=== PATIENT | female | born 1940 | race Caucasian/White ===

== ENCOUNTER 2023-02-11 14:47 | Outpatient (OUT) | payer OTHER, SELFPAY ==
--- NOTE | 2023-02-11 14:59 | XR_ITS ---
The [address] [address] Patient Name: ZEYNEP ALVARADO MRN: [id number] date: 1940 Sex: F Assigned Patient Location: [facility] Current Patient Location: RAD Accession/Order Number: [id number] Exam Date: 02/11/2023 14:50 Report Date: 02/11/2023 17:13 At the request of: CHRISTOPHER HOUSTON Procedure: XR chest 2V EXAM: XR chest 2V HISTORY: Night sweats/hot flashes R23.2 COMPARISON: None. TECHNIQUE: PA and lateral views of the chest performed. FINDINGS: The trachea is midline. The heart size is upper limits normal. 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 The lung volumes are normal. The lung turner are otherwise clear. There is no pneumothorax. The bony structures are osteopenic. There is scoliosis along the thoracolumbar spine. XR/XR chest 2V IMPRESSION: There is no acute cardiopulmonary process. Electronically authenticated by: HEATH MORATAYA Date: 02/11/2023 17:13
== END 2023-02-11 14:48 | disposition home or self-care (01) ==
LOC: RAD 14:47
PROVIDERS: PCP Internal Medicine; Visit Provider Physician Assistant
DX: R23.2 Flushing (principal)
CPT/HCPCS: 71046

== ENCOUNTER 2023-04-28 14:05 | Outpatient (OUT) | payer OTHER, SELFPAY ==
--- NOTE | 2023-04-28 14:08 | MM_ITS ---
Patient Name: ZEYNEP ALVARADO MR#: [id number] : 1940 Exam Date: 04/28/2023 Ordering Doctor: DR PDAILLA SOL M.D. RADIOLOGY REPORT PROCEDURE: MM TOMOSYNTHESIS SCREENING BI COMPARISON: MG MAMM SCREEN 3D JEAN PIERRE CAD, 03/21/2021. MG MAMM SCREEN 3D JEAN PIERRE CAD, 04/22/2022. INDICATIONS: Screening Calculator Name NCI Breast Cancer Risk Assessment Tool 5 Year Breast Cancer Risk 3.50% Lifetime Breast Cancer Risk 5.30% Personal Breast Cancer No Personal Ovarian Cancer No Treatments Excision Family Cancers Mother with pancreas cancer at age 98; Mother with breast cancer at age ~78; Mother with colon cancer at age 96; Grandmother-maternal with colon cancer at age ~60; Aunt-maternal with bladder cancer at age ~80. LOCATION: [facility] BREAST COMPOSITION: Heterogeneously dense,which may obscure small masses. FINDINGS: DIAGNOSTIC CATEGORY 1--NEGATIVE. NO CHANGE FROM COMPARISON ASSESSMENT. Scattered benign-appearing calcifications are present. RIGHT BREAST: No significant suspicious finding. LEFT BREAST: No significant suspicious finding. RECOMMENDATIONS: ROUTINE MAMMOGRAM AND CLINICAL EVALUATION IN 12 MONTHS. PLEASE NOTE: A NORMAL MAMMOGRAM DOES NOT EXCLUDE THE POSSIBILITY OF BREAST CANCER. A CLINICALLY SUSPICIOUS PALPABLE LUMP SHOULD BE BIOPSIED. Dictated by: Fred Holt MD on 04/28/2023 at 14:51 Approved by: Fred Holt MD on 04/28/2023 at 14:53
== END 2023-04-28 14:06 | disposition home or self-care (01) ==
LOC: MAMMO 14:05
PROVIDERS: PCP Internal Medicine; Visit Provider Internal Medicine
DX: Z12.31 Encounter for screening mammogram for malignant neoplasm of breast (principal); Z80.3 Family history of malignant neoplasm of breast; Z80.52 Family history of malignant neoplasm of bladder; Z80.0 Family history of malignant neoplasm of digestive organs; Z80.8 Family history of malignant neoplasm of other organs or systems
CPT/HCPCS: 77063; 77067

== ENCOUNTER 2023-09-15 14:27 | Outpatient (OUT) | payer OTHER, SELFPAY ==
--- NOTE | 2023-09-15 14:31 | XR_ITS ---
[address] [address] Patient Name: ZEYNEP ALVARADO MRN: [id number] date: 1940 Sex: F Assigned Patient Location: [facility] Current Patient Location: [facility] Accession/Order Number: [id number] Exam Date: 09/15/2023 14:40 Report Date: 09/15/2023 15:59 At the request of: PADILLA SOL Procedure: XR DEXA axial skeleton EXAMINATION: XR DEXA axial skeleton, 09/15/2023 2:40 PM EDT HISTORY: Estrogen Deficiency E28.39 COMPARISON: 2020, , 16, 14, 12, 05. TECHNIQUE: Dual-energy X-ray absorptiometry (DEXA) bone density study performed for the axial skeleton. HISTORY: Estrogen Deficiency E28.39 FINDINGS: Bone mineral density AP spine L2-L4 measures 1.181 g/sq cm. T score -0.2. WHO classification: Normal. This is artifactually elevated secondary to dextroscoliosis and degenerative spondylosis Lowest bone mineral density is in the right femoral neck measuring 0.818 g/sq cm. T score -1.6. WHO classification: Osteopenia XR/XR DEXA axial skeleton IMPRESSION: Osteopenia. Moderate fracture risk. Physiologic reduction from the prior exam Electronically authenticated by: TIFFANY ALBRECHT Date: 09/15/2023 15:59
== END 2023-09-15 14:28 | disposition home or self-care (01) ==
LOC: RAD 14:27
PROVIDERS: PCP Internal Medicine; Visit Provider Internal Medicine
DX: E28.39 Other primary ovarian failure (principal); M85.80 Other specified disorders of bone density and structure, unspecified site
CPT/HCPCS: 77080

== ENCOUNTER 2024-05-20 14:00 | Outpatient (OUT) | payer MEDICARE, SELFPAY ==
--- NOTE | 2024-05-20 14:04 | MM_ITS ---
Patient Name: ZEYNEP ALVARADO MR#: [id number] : 1940 Exam Date: 05/20/2024 Ordering Doctor: DR PADILLA SOL M.D. RADIOLOGY REPORT PROCEDURE: MM TOMOSYNTHESIS SCREENING BI COMPARISON: MG MAMM SCREEN 3D JEAN PIERRE CAD, 04/22/2022. MM TOMOSYNTHESIS SCREENING BI, 04/28/2023. INDICATIONS: Screening Calculator Name NCI Breast Cancer Risk Assessment Tool 5 Year Breast Cancer Risk 3.40% Lifetime Breast Cancer Risk 4.90% Personal Breast Cancer No Personal Ovarian Cancer No Treatments Excision Family Cancers Mother with pancreas cancer at age 98; Mother with breast cancer at age ~78; Mother with colon cancer at age 96; Grandmother-maternal with colon cancer at age ~60; Aunt-maternal with bladder cancer at age ~80. LOCATION: [facility] [place] BREAST COMPOSITION: The breasts are heterogeneously dense,which may obscure small masses. FINDINGS: DIAGNOSTIC CATEGORY 1--NEGATIVE. NO CHANGE FROM COMPARISON ASSESSMENT. Scattered benign-appearing lymph nodes are present. RIGHT BREAST: No significant suspicious finding. LEFT BREAST: No significant suspicious finding. RECOMMENDATIONS: ROUTINE MAMMOGRAM AND CLINICAL EVALUATION IN 12 MONTHS. PLEASE NOTE: A NORMAL MAMMOGRAM DOES NOT EXCLUDE THE POSSIBILITY OF BREAST CANCER. A CLINICALLY SUSPICIOUS PALPABLE LUMP SHOULD BE BIOPSIED. Dictated by: Fred Holt MD on 05/20/2024 at 15:54 Approved by: Fred Holt MD on 05/20/2024 at 15:55
--- OUTSIDE RECORDS SUMMARY | 2024-05-20 14:04 | XMS_ITS | CCD ---
Author Organization [facility] Care Team Providers Care Lost And Found Clerk Name Role Phone Mitch Talavera Unavailable GORDY Chen Primary Care Provider DO Mitch Talavera Attending Provider [phone] DR DENNY CHEN Primary Care Unavailable ALYSON CARLSON Admitting Unavailable ALYSON CRALSON Attending Unavailable SINDHU MEDRANO Consulting Unavailable TIFFANY ADAM Consulting Unavailable EBENEZER, DR CAUSEY Admitting Unavailable EBENEZER, DR CAUSEY Attending Unavailable EBENEZER, DR CAUSEY Primary Care Unavailable EBENEZER, DR CAUSEY Consulting Unavailable EAST DENNIS, DR TIFFANY Corrales Consulting Unavailable Denny Chen MD Primary Care Provider Denny Chen MD Unavailable Denny Chen MD Unavailable [phone] GORDY Chen Primary Care Provider [phone] NATTY Hernandez Attending Provider DO Etienne Moses Attending Provider Etienne Moses Admitting Unavailable Denny Chen Primary Care Unavailable Etienne Moses Attending Unavailable Denny Chen Primary Care Unavailable Etienne Moses Attending Unavailable Etienne Moses Admitting Unavailable Denny Chen Primary Care Unavailable Kennedi Hernandez Attending Unavailable Kennedi Hernandez Admitting Unavailable Denny Chen MD Unavailable EARNEST SALINAS Attending Unavailable CHRISTOPHER HOUSTON Attending Unavailable DENNY CHEN Attending Unavailable EARNEST SALINAS Attending Unavailable EARNEST SALINAS Attending Unavailable DENNY CHEN Attending Unavailable EARNEST SALINAS Attending Unavailable RUT NGUYEN Attending Unavailable RUT NGUYEN Attending Unavailable RUT NGUYEN Attending Unavailable RUT NGUYEN Attending Unavailable Allergies Allergy Classification Reported Allergen(s) Allergy Type Date of Onset Reaction(s) Facility (20 sources) erythromycin base; Translations: [erythromycin base] Allergy to substance 2 Redness of Skin [facility] (20 sources) cefdinir Drug Allergy 3 Diarrhea [facility] (20 sources) Erythromycin Drug Allergy 3 Rash [facility] (20 sources) Amoxicillin-Pot Clavulanate Drug Allergy 3 Diarrhea [facility] Medications Current Medications Medication Drug Class(es) Dates Sig (Normalized) Sig (Original) Arexvy 120 MCG/0.5ML reconstituted suspension (10 sources) Start: 09-21-2023 Arexvy 120 MCG/0.5ML reconstituted suspension 09/21/2023 Active ascorbic acid 500 mg oral tablet (20 sources) Vitamin C Start: 12-18-2021 take 1 tablet by mouth once daily Ascorbic Acid (Vitamin C) (Vitamin C) 500 mg Tablet Active 500 MG PO Daily December 18, 2021 12:00am Ascorbic Acid (V itamin C) 500 MG capsule Take by mouth Active Vitamin C Active calcium carbonate 1500 mg oral tablet (7 sources) Start: 12-18-2021 take 1 tablet by mouth twice daily Calcium Carbonate (Calcium 600) 600 mg calcium (1,500 mg) Tablet Active 600 MG PO Twice daily December 18, 2021 12:00am Calcium Carbonate-Vit D-Min (Calcium 600+D Plus Minerals) 600-400 MG-UNIT chewable tablet (20 sources) Calcium Carbonat e-Vit D-Min (Calcium 600+D Plus Minerals) 600-400 MG-UNIT chewable tablet 1 (one) time each day at the same time. Active Calcium Carbonat e-Vit D-Min (Calcium 600+D Plus Minerals) 600-400 MG-UNIT chewable tablet 1 (one) time each day at the same time. 0 Active Calcium Citrate (7 sources) Calcium Citrate + D3 Active celecoxib 100 mg oral capsule (14 sources) Nonsteroidal Anti-inflammatory Drug Start: 4 End: 5 take 1 capsule by mouth in the morning celecoxib (CeleBREX) 100 MG capsule Indications: Primary osteoarthritis of both knees Take 1 capsule (100 mg) by mouth in the morning and 1 capsule (100 mg) before bedtime. 60 capsule 11 04/06/2024 04/06/2025 Active Start: 07-21-2022 take 1 capsule by mi ut in the morning celecoxib (CeleBREX) 100 MG capsule Take 100 mg by mouth in the morning. 0 07/21/2022 Active cholecalciferol 0.05 mg oral capsule (12 sources) Vitamin D Start: 12-18-2021 take 1 capsule by mouth once daily Cholecalciferol (Vitamin D3) (Vitamin D3) 50 mcg (2,000 unit) Capsule Active 50 MCG PO Daily December 18, 2021 12:00am End: 01-20-2024 cholecalciferol (Vitamin D-3 ) 50 MCG (2000 UT) tablet Take 50 tablets by mouth 1 (one) time each day at the same time. 01/20/2024 Discontinued doxycycline hyclate 100 mg oral tablet (5 sources) Tetracycline-class Drug Start: 04-29-2024 End: 05-06-2024 take 1 tablet by mouth in the morning doxycycline (Vibra-Tabs) 100 MG tablet Indications: Infection of superficial incisional surgical site after procedure, initial encounter Take 1 tablet (100 mg) by mouth in the morning and 1 tablet (100 mg) before bedtime. Do all this for 7 days. 14 tablet 04/29/2024 05/06/2024 Active hydrocortisone 25 mg/ml rectal cream (20 sources) Corticosteroid Start: 02-10-2023 hydrocortisone (Anusol-HC) 2.5 % rectal cream Indications: External hemorrhoids Insert into the rectum 2 (two) times a day. 28 g 2 02/10/2023 Active levothyroxine sodium 0.1 mg oral tablet (20 sources) l-Thyroxine Start: 12-18-2021 End: 01-20-2024 take 1 tablet by mouth in the morning levothyroxine (Synthroid, Levoxyl) 100 MCG tablet Indications: Acquired hypothyroidism (CMS/HCC) Take 1 tablet (100 mcg) by mouth in the morning. Take on an empty stomach.. 100 tablet 3 01/20/2024 Active Multiple Vitamin (MULTIVITAMINS PO) (20 sources) take 1 tablet by mouth once daily Multiple Vitamin (MULTIVITAMINS PO) Take 1 tablet by mouth 1 (one) time each day. Active take 1 tablet by mouth once agustín y Multiple Vitamin (MULTIVITAMINS PO) Take 1 tablet by mouth 1 (one) time each day. 0 Active Multivitamin preparation (7 sources) Multi Vitamin Ac tive Ivykxfqhuoof-Fye-Jcpt-Fa-V it K (Multi For Her) 18 mg iron-600 mcg-40 mcg Capsule (7 sources) Start: 10-21-2017 take 1 tablet by mouth once daily Swolcuxjnemo-Rau-Qgin- Fa-Vit K (Multi For Her) 18 mg iron-600 mcg-40 mcg Capsule Active 1 TAB PO Daily October 21, 2017 12:00am potassium 99 mg extended release oral tablet (7 sources) Start: 12-18-2021 take 99 mg by mouth once daily Potassium Active 99 MG PO Daily December 18, 2021 12:00am Psyllium (7 sources) take 3 capsules by mouth once daily in the morning Metamucil 0.52 GM 3 CAPSULES Orally EVERY MORNING Active take 3 capsules by m outh once daily in the morning Metamucil 0.52 GM 3 CAPSULES Orally EVER Y MORNING Active traMADol hydrochloride 50 mg oral tablet (20 sources) Opioid Agonist Start: 08-13-2023 take 1 tablet by mouth every eight hours as needed for pain traMADol (Ultram) 50 MG tablet Take 50 mg by mouth every 8 (eight) hours if needed for moderate pain 08/13/2023 Active Start: 08-13-2023 take 50 mg by mouth twice agustín y Tramadol Active 50 MG PO Twice daily 04 23August 13, 2023 12:00am triamcinolone acetonide 1 mg/ml topical cream (2 sources) Corticosteroid triamcinolone (Kenalog) 0.1 % cream Apply 1 application topically every 12 (twelve) hours. 0 Active Vision Formula 2 (7 sources) Vision Formula 2 Active Vit A,C And F-Hbydfy-Boqcxvou (Vision Formula (With Lutein)) 300 mcg-200 mg-27 mg-2 mg Tablet (7 sources) Start: 2 take 1 tablet by mouth once daily after mealtime Vit A,C And K-Omzbsv-Nwrjybrg (Vision Formula (With Lutein)) 300 mcg-200 mg-27 mg-2 mg Tablet Active 1 TAB PO Daily December 18, 2021 12:00am administer after a meal Completed/Discontinued Medications Medication Drug Class(es) Dates Sig (Normalized) Sig (Original) acetaminophen 500 mg oral capsule (7 sources) take 1 capsule by mouth every six hours Acetaminophen 500 MG 1 capsule as needed Orally every 6 hrs Not-Taking loperamide hydrochloride 2 mg oral capsule (14 sources) Opioid Agonist Start: 10-21-2017 End: 12-18-2021 Loperamide Discontinued 2 MG PO As Directed October 21, 2017 12:00am December 18, 2021 3:01pm Start: 10-21-2017 End: 10-21-2017 Loperamide Discontinued October 21, 2017 12:00am October 21, 2017 6:24am meloxicam 15 mg oral tablet (7 sources) Nonsteroidal Anti-inflammatory Drug Start: 07-25-2021 take 1 tablet by mouth every twenty-four hours Meloxicam 15 MG 1 tablet Orally Once a day for 30 day(s) Jul, Not-Taking Multiple Vitamins-Minera ls (Vision Vitamins) tablet (3 sources) End: 01-20-2024 Multiple Vitamins-Minerals (Vision Vitamins) tablet Take by mouth 01/20/2024 Discontinued Multiple Vitamin s-Minerals (Vision Vitamins) tablet Take by mouth Active Problems Active Problems Problem Classification Problem Date Documented Date Episodic/Chronic Acquired foot deformities (20 sources) Acquired right hallux valgus; Translations: [Hallux valgus (acquired), right foot] Onset: 12-24-2022 12-24-2022 Chronic Acquired foot deformities (2 sources) Acquired deformity of toe of right foot; Translations: [Acquired deformities of toe(s), unspecified, right foot] 02-29-2024 Episodic Complications of surgical procedures or medical care (2 sources) Postoperative wound infection-superficial ; Translations: [Infection following a procedure, superficial incisional surgical site, initial encounter] 04-29-2024 Episodic Menopausal disorders (20 sources) Disorder associated with menstruation AND/OR menopause; Translations: [Unspecified menopausal and perimenopausal disorder] Onset: 12-24-2022 12-24-2022 Chronic Mood disorders (20 sources) Mild major depression, single episode; Translations: [Major depressive disorder, single episode, mild] Onset: 12-24-2022 12-24-2022 Chronic Mycoses (3 sources) Onychomycosis; Translations: [Tinea unguium] 07-02-2023 Episodic Neoplasms of unspecified nature or uncertain behavior (2 sources) Neoplastic disease; Translations: [Neoplasm of unspecified behavior of bone, soft tissue, and skin] 04-05-2024 Episodic Nonmalignant breast conditions (19 sources) Fibrocystic disease of breast; Translations: [Diffuse cystic mastopathy of unspecified breast] Onset: 09-08-2003 07-29-2023 Chronic Osteoarthritis (20 sources) Osteoarthritis of joint of left wrist; Translations: [Primary osteoarthritis, left wrist] Onset: 07-25-2021 Resolved: 01-10-2022 Chronic Other aftercare (2 sources) Removal of sutures done; Translations: [Encounter for removal of sutures] 05-05-2024 Episodic Other circulatory disease (2 sources) Spider nevus; Translations: [Nevus, non-neoplastic] 04-05-2024 Episodic Other connective tissue disease (1 source) Pain of toes of bilateral feet; Translations: [Pain in right toe(s)] 07-02-2023 Episodic Other injuries and conditions due to external causes (4 sources) Other injury of unspecified body region, initial encounter; Translations: [Fracture of unspecified bone, closed] 08-10-2023 Episodic Other injuries and conditions due to external causes (1 source) Unspecified injury of right shoulder and upper arm, initial encounter; Translations: [Unspecified injury of right shoulder and upper arm, initial encounter] Onset: 08-10-2023 Episodic Other nervous system disorders (3 sources) Carpal tunnel syndrome of left wrist; Translations: [Carpal tunnel syndrome, left upper limb] Chronic Other nervous system disorders (2 sources) Carpal tunnel syndrome, left upper limb Onset: 12-13-2021 Resolved: 01-10-2022 Chronic Other screening for suspected conditions (not mental disorders or infectious disease) (4 sources) Encounter for screening mammogram for malignant neoplasm of breast; Translations: [ENC SCR MAMMO MALIG NEOPLASM BREAST] Onset: 04-22-2022 Episodic Other skin disorders (2 sources) Lentiginosis; Translations: [Other melanin hyperpigmentation] 04-05-2024 Episodic Other skin disorders (2 sources) Actinic keratosis; Translations: [Actinic keratosis] 04-05-2024 Episodic Other skin disorders (2 sources) Seborrheic keratosis; Translations: [Other seborrheic keratosis] 04-05-2024 Episodic Residual codes; unclassified (1 source) Family history of malignant neoplasm of digestive organs; Translations: [FAM HX MALIG NEOPLASM DIGESTIV ORGN] Onset: 04-26-2022 Episodic Residual codes; unclassified (1 source) Family history of malignant neoplasm of breast; Translations: [FAMILY HX MALIG NEOPLASM OF BREAST] Onset: 04-26-2022 Episodic Residual codes; unclassified (1 source) Family history of malignant neoplasm of bladder; Translations: [FAM HX MALIGNANT NEOPLASM BLADDER] Onset: 04-26-2022 Episodic Thyroid disorders (20 sources) Goiter; Translations: [Nontoxic goiter, unspecified] Onset: 12-24-2022 12-24-2022 Chronic Past or Other Problems Problem Classification Problem Date Documented Da te Episodic/Chronic E Codes: Fall (1 source) Unspecified fall, initial encounter; Translations: [UNSPECIFIED FALL INITIAL ENCOUNTER] Onset: 07-25-2021 Episodic Fracture of upper limb (20 sources) Other fractures of lower end of left radius, initial encounter for closed fracture; Translations: [Unspecified fracture of the lower end of left radius, initial encounter for closed fracture] Onset: 07-25-2021 Resolved: 12-13-2021 Episodic Hemorrhoids (20 sources) Thrombosed external hemorrhoids; Translations: [Perianal venous thrombosis] Onset: 12-24-2022 12-24-2022 Episodic Mood disorders (19 sources) Mood disorders Onset: 09-09-2023 09-09-2023 Other bone disease and musculoskeletal deformities (20 sources) Osteopenia; Translations: [Other specified disorders of bone density and structure, unspecified site] Onset: 12-24-2022 12-24-2022 Episodic Other gastrointestinal disorders (20 sources) Diarrhea; Translations: [Diarrhea, unspecified] Onset: 07-29-2023 10-21-2017 Episodic Other inflammatory condition of skin (20 sources) Seborrheic dermatitis; Translations: [Seborrheic dermatitis, unspecified] Onset: 12-24-2022 12-24-2022 Episodic Other injuries and conditions due to external causes (20 sources) Injury of upper extremity; Translations: [Unspecified injury of right shoulder and upper arm, initial encounter] Onset: 09-09-2023 08-10-2023 Episodic Other injuries and conditions due to external causes (20 sources) Fracture of bone; Translations: [Other injury of unspecified body region, initial encounter] Onset: 09-09-2023 08-10-2023 Episodic Other non-epithelial cancer of skin (20 sources) Basal cell carcinoma of lower extremity; Translations: [Basal cell carcinoma of skin of right lower limb, including hip] Onset: 12-24-2022 12-24-2022 Episodic Other non-traumatic joint disorders (8 sources) Pain in left wrist; Translations: [PAIN IN LEFT WRIST] Onset: 07-23-2021 Resolved: 12-13-2021 Episodic Residual codes; unclassified (1 source) Other specified postprocedural states Onset: 01-10-2022 Resolved: 01-10-2022 Episodic Residual codes; unclassified (20 sources) Flushing; Translations: [Flushing] Onset: 02-10-2023 02-10-2023 Episodic Sprains and strains (1 source) Unspecified sprain of left ring finger, initial encounter; Translations: [UNS SPRAIN LT RING FINGER INITIAL] Onset: 07-25-2021 Episodic Results Test Name Value Interpretation Reference Range Facility CULTURE, AEROBIC BACTERIAon 05-02-2024 CULTURE, AEROBIC BACTERIA SEE NOTE Abnormal [facility] Comment on above: Order Comment: FASTI NG: UNKNOWN Result Comment: CULTURE, AEROBIC BACTERIA Micro Number: [id number] Test Status: Final Specimen Source: Left abdomen Specimen Quality: Adequate Result: Heavy growth of Staphylococcus aureus S.aureus INT ESTER CIPROFLOXACIN S <=0.5 CLINDAMYCIN S <=0.25 ERYTHROMYCIN S <=0.25 GENTAMICIN S <=0.5 LEVOFLOXACIN S <=0.12 OXACILLIN S <=0.25 1 TETRACYCLINE S <=1 TRIMETHOPRIM/SULFA S <=10 VANCOMYCIN S <=0.5 S = Susceptible I = Intermediate R = Resistant NS = Not susceptible SDD = Susceptible Dose Dependent * = Not Tested NR = Not Reported NN = See Therapy Comments THERAPY COMMENTS Note 1: Oxacillin susceptible staphylococci are susceptible to other penicillinase-stable penicillins (e.g., methicillin, nafcillin), beta- lactam/beta-lactamase inhibitor combinations, and cephems with staphylococcal indications, including cefazolin. Performed By: #### [phone] #### [facility] [address], [address] [place] [address] Clinical Account Manager: Cheko Tony MD No Panel Informationon 04-21 Complexity: Intermediate Final length (cm): 3 Reason for type of repair: allow closure of the large defect Undermining: edges undermined Undermining comment: The surrounding tissue was undermined until the skin edges could be approximated without undue tension. Any tissue redundancies were removed. Subcutaneous layers (deep stitches): Suture size: 3-0 Suture type comment: Biosyn Stitches: Buried horizontal mattress (Closure was performed in a layered fashion with subcutaneous tissue closed first using tension-bearing absorbable sutures to the level of the superficial fascia.) Fine/surface layer approximation (top stitches): Suture size: 4-0 Suture type: Prolene (polypropylene) Stitches: simple running Stitches comment: Epicuticular skin sutures were then placed with minimal tension. Suture removal (days): 14 Outcome: patient tolerated procedure well with no complications Post-procedure details: sterile dressing applied and wound care instructions given Post-procedure details comment: It was emphasized to the patient to contact the office for any signs of infection, uncontrollable bleeding, or complications. Dressing type: bandage [facility] Lesion length (cm): 0.7 Lesion width (cm): 0.7 Margin per side (cm): 0.4 Total excision diameter (cm): 1.5 Informed consent: discussed and consent obtained Informed consent comment: Risks and possible complications were discussed as noted on the consent form. The consent form was signed prior to the procedure. Timeout: patient name, date of , surgical site, and procedure verified Timeout comment: Patient and provider identified site. Site was marked and excision was drawn out. Photo was taken and shown to patient, patient verified this is the correct site. Procedure prep: Patient was prepped and draped in usual sterile fashion (The planned incision lines were drawn along relaxed skin tension lines, if possible, to minimize scarring and deformity of surrounding structures.) Prep type: Chlorhexidine Anesthesia: the lesion was anesthetized in a standard fashion Anesthesia comment: The local anesthetic was injected to create a field block at the site of the procedure. Anesthetic: 1% lidocaine w/ epinephrine 1-100,000 buffered w/ 8.4% NaHCO3 Instrument used: #15 blade Instrument used comment: Incisions were made as drawn, and the surrounding tissue was undermined until the skin edges could be approximated without undue tension. Any tissue redundancies were removed. Hemostasis achieved with: electrodesiccation Additional details: Amount of lidocaine used: 6.0 ml Estimated blood loss: <1.0 ml [employer]Jam No Panel InformationOrdered By: Ruchi Vasquez on 04-21-2024 Sanera No Panel Informationon 04-05 Type of biopsy: tangential Informed consent: discussed and consent obtained Informed consent comment: The risks and benefits of the biopsy were discussed. Risks include but are not limited to bleeding, infection, scarring, pain, and nerve damage. An opportunity to ask questions prior to the procedure was permitted and all questions were answered. Patient was prepped and draped in usual sterile fashion: area cleansed with alcohol. Anesthesia: the lesion was anesthetized in a standard fashion Anesthetic: 1% lidocaine w/ epinephrine 1-100,000 buffered w/ 8.4% NaHCO3 Instrument used: DermaBlade Hemostasis achieved with: electrodesiccation Outcome: patient tolerated procedure well Outcome comment: The specimen was placed in a prelabeled formalin container to be sent for pathology Post-procedure details: sterile dressing applied and wound care instructions given Post-procedure details comment: Emphasized need to contact clinic for any signs of infection, uncontrollable bleeding, or complications. Dressing type: bandage Additional details: Photo taken yes Amount of lidocaine used: 0.5 cc Tysdo e Sanera Type of biopsy: tangential Informed consent: discussed and consent obtained Informed consent comment: The risks and benefits of the biopsy were discussed. Risks include but are not limited to bleeding, infection, scarring, pain, and nerve damage. An opportunity to ask questions prior to the procedure was permitted and all questions were answered. Patient was prepped and draped in usual sterile fashion: area cleansed with alcohol. Anesthesia: the lesion was anesthetized in a standard fashion Anesthetic: 1% lidocaine w/ epinephrine 1-100,000 buffered w/ 8.4% NaHCO3 Instrument used: DermaBlade Hemostasis achieved with: electrodesiccation Outcome: patient tolerated procedure well Outcome comment: The specimen was placed in a prelabeled formalin container to be sent for pathology Post-procedure details: sterile dressing applied and wound care instructions given Post-procedure details comment: Emphasized need to contact clinic for any signs of infection, uncontrollable bleeding, or complications. Dressing type: bandage Additional details: Photo taken yes Amount of lidocaine used: 0.5 cc [facility] XR forearm RT 2V*on 09-17-19 XR forearm RT 2V* [facility] [place] [address] XRay Report Signed Patient: Irene Alvarado MR#: [id number] 4 : 1940 Acct:[id number] Age/Sex: 82 / F ADM Date: 09/17/23 Loc: [facility] Room: Type: REG CLI Attending Dr: Etienne Moses DO Copies to: Etienne Moses DO Ordering Provider: Etienne Moses DO Date of Service: 09/17/23 XR/XR forearm RT 2V*: S52.509A - Unspecified fracture of the lower end of unspe... 2 views right forearm plain film COMPARISON: 08/10/2023 HISTORY: Status post right distal radius fracture ACUTE FINDINGS: Continued healing. Stable alignment DEGENERATIVE CHANGE: Similar SOFT TISSUE FINDINGS: Unremarkable JOINT EFFUSION: None POSTOP CHANGES: None BONY MINERALIZATION: Adequate XR/XR forearm RT 2V* IMPRESSION: Healing fracture Impression dictated by: Gary Byrd M.D.09/17/2023 4:17 PM Dictation Location: [place] [address] Transcribed By: [facility] 09/17/231616 Dictated By: Gary Byrd DO 09/17/231616 Signed By: 09/17/23 1617 Normal [facility] XR wrist RT min 3V*on 2023 XR wrist RT min 3V* [facility] [place] [address] XRay Report Signed Patient: Irene Alvarado MR#: [id number] 4 : 1940 Acct:[id number] Age/Sex: 82 / F ADM Date: 08/13/23 Loc: [facility] [place] Room: Type: REG CLI Attending Dr: Etienne Moses DO Copies to: Etienne Moses DO Ordering Provider: Eitenne Moses DO Date of Service: 08/13/23 XR/XR wrist RT min 3V*: S52.509A - Unspecified fracture of the lower end of unspe... 4 views right wrist plain film COMPARISON: 08/10/2023 HISTORY: Right distal radius fracture ACUTE FINDINGS: Stable alignment of distal radius fracture fragments. DEGENERATIVE CHANGE: Similar extensive degeneration. Chondrocalcinosis. SOFT TISSUE FINDINGS: Unremarkable JOINT EFFUSION: None POSTOP CHANGES: None BONE MINERALIZATION: Adequate XR/XR wrist RT min 3V* IMPRESSION: Stable findings Impression dictated by: Gary Byrd M.D.08/13/2023 3:41 PM Dictation Location: [facility] Transcribed By: [facility] 08/13/23 1541 Dictated By: Gary Byrd DO 08/13/23 1540 Signed By: 08/13/23 1541 Normal [facility] XR forearm RT 2V*on 08-10-19 XR forearm RT 2V* [facility] [place] [address] [place] [address] XRay Report Signed Patient: Irene Alvarado MR#: [id number] 4 : 1940 Acct:[id number] Age/Sex: 82 / F ADM Date: 08/10/23 [facility] Type[facility] Attending Dr: Kennedi Hernandez APRN Copies to: Kennedi Hernandez APRN Ordering Provider: Kennedi Hernandez APRN Date of Service: 08/10/23 XR/XR forearm RT 2V*: RIGHT ARM INJURY ([id number]) XR/XR shoulder RT min 2V*: RIGHT ARM INJURY RIGHT SHOULDER - - 3 views, right forearm 2 views CLINICAL HISTORY: Fell this afternoon now with pain posterior aspect of right shoulder radiating to elbow. Distal forearm pain. COMPARISON: None FINDINGS: Right shoulder: Mild degenerative changes of the AC and glenohumeral joints without acute bony process. Right forearm: Impacted distal radius fracture. Chondrocalcinosis involving the TFCC. Carpus demonstrate degenerative change. Elbow joint appears intact. XR/XR shoulder RT min 2V* IMPRESSION: DEGENERATIVE CHANGES OF THE RIGHT SHOULDER WITHOUT ACUTE BONY PROCESS. IMPACTED DISTAL RADIUS FRACTURE. Impression dictated by: Rajesh Lynch Jr., DClaraOClara08/10/2023 5:36 PM Dictation Location: [place] [address] Transcribed By: BOY 08/10/231735 Dictated By: Rajesh Lynch Jr, DO 08/10/231733 Signed By: 08/10/231735 Normal [facility] MG MAMM SCREEN 3D JEAN PIERRE CADon 04-22-2022 MG MAMM SCREEN 3D JEAN PIERRE CAD Patient: IRENE ALVARADO Exam Date: 04/22/2022 : 1940 Gender:F Ordering : DR DENNY CHEN M.D. Admission #: [id number] Family : Order #: [id number] CLICK HERE TO VIEW EXAM RADIOLOGY REPORT PROCEDURE: MAMMOGRAM SCREENING 3D BILATERAL CAD COMPARISON: MG MAMM SCREEN 3D JEAN PIERRE CAD, 03/21/2021. MG MAMM SCREEN JEAN PIERRE W CAD, 02/20/2020. INDICATIONS: Screening mammography Calculator Name NCI Breast Cancer Risk Assessment Tool 5 Year Breast Cancer Risk 3.50% Lifetime Breast Cancer Risk 5.90% Personal Breast Cancer No Personal Ovarian Cancer No Treatments Excision Family Cancers Mother with pancreas cancer at age 98; Mother with breast cancer at age 78; Mother with colon cancer at age 96; Grandmother-maternal with colon cancer at age 60; Aunt-maternal with bladder cancer at age 80. LOCATION: [facility] BREAST COMPOSITION: Heterogeneously dense,which may obscure small masses. FINDINGS: DIAGNOSTIC CATEGORY 1--NEGATIVE. NO CHANGE FROM COMPARISON ASSESSMENT. Scattered benign-appearing calcifications are present. RIGHT BREAST: No significant suspicious finding. LEFT BREAST: No significant suspicious finding. RECOMMENDATIONS: ROUTINE MAMMOGRAM AND CLINICAL EVALUATION IN 12 MONTHS. PLEASE NOTE: A NORMAL MAMMOGRAM DOES NOT EXCLUDE THE POSSIBILITY OF BREAST CANCER. A CLINICALLY SUSPICIOUS PALPABLE LUMP SHOULD BE BIOPSIED. Dictated by: Tiffany Holt MD on 04/22/2022 at 15:52 Approved by: Tiffany Holt MD on 04/22/2022 at 15:54 Normal [facility] Basophils Auto (Bld) [#/Vol] Ordered By: Mitch Talavera on 12-18-2021 Basophils (Bld) [#/Vol] 0.0 10*3/uL 0.0-0.2 [facility] Basophils/100 WBC Auto (Bld) Ordered By: Mitch Talavera on 12-18-2021 Basophils/100 WBC (Bld) 0.8 % . [facility] Blood hemoglobin measurement (mass/volume)Ordered By: Mitch Talavera on 12-18-2021 Hemoglobin (Bld) [Mass/Vol] 12.8 g/dL 11.8-15.4 [facility] Blood leukocytes automated c ount (number/volume)Ordered By: Mitch Talavera on 12-18-2021 WBC (Bld) [#/Vol] 5.7 10*3/uL 4.5-11.0 [facility] Body fluid albumin measureme nt (mass/volume)Ordered By: Mitch Talavera on 12-18-2021 Albumin (Body fld) [Mass/Vol] 3.7 g/dL 3.2-5.5 [facility] Creatinine and Glomerular fi ltration rate.predicted panel (S/P/Bld)Ordered By: Mitch Talavera on 12-18-2021 Creatinine [Mass/Vol] 0.84 mg/dL 0.44-1.03 [facility] Eosinophils Auto (Bld) [#/Vo l]Ordered By: Mitch Talavera on 12-18-2021 Eosinophils (Bld) [#/Vol] 0.2 10*3/uL 0.0-0.45 [facility] Eosinophils/100 WBC Auto (Bl d)Ordered By: Mitch Talavera on 12-18-2021 Eosinophils/100 WBC (Bld) 3.5 % . [facility] Erythrocyte distribution wid th Auto (RBC) [Ratio]Ordered By: Mitch Talavera on 12-18-2021 Erythrocyte distribution width (RBC) [Ratio] 14.2 % 11.9-15.3 [facility] Estimated glomerular filtrat ion rate (GFR) non- AmericanOrdered By: Mitch Talavera on 12-18-2021 GFR/1.73 sq M.predicted among non-blacks MDRD (S/P/Bld) [Vol rate/Area] > 60 mL/Min [facility] Globulin Calc (S) [Mass/Vol] Ordered By: Mitch Talavera on 12-18-2021 Globulin (S) [Mass/Vol] 2.3 g/dL [facility] Hematocrit Auto (Bld) [Volum e fraction]Ordered By: Mitch Talavera on 12-18-2021 Hematocrit (Bld) [Volume fraction] 38.4 % 34.0-46.4 [facility] Laboratory - Hematology and Cell countsOrdered By: Mitch Talavera on 12-18-2021 Nucleated RBC/100 WBC (Bld) [Ratio] 0.1 % 0-0.5 [facility] Lymphocytes Auto (Bld) [#/Vo l]Ordered By: Mitch Talavera on 12-18-2021 Lymphocytes (Bld) [#/Vol] 2.2 10*3/uL 1.00-4.8 [facility] Lymphocytes/100 WBC Auto (Bl d)Ordered By: Mitch Talavera on 12-18-2021 Lymphocytes/100 WBC (Bld) 37.9 % . [facility] MCH Auto (RBC) [Entitic mass ]Ordered By: Mitch Talavera on 12-18-2021 MCH (RBC) [Entitic mass] 30.4 pg 24.7-34.3 [facility] MCHC Auto (RBC) [Mass/Vol]Or dered By: Mitch Talavera on 12-18-2021 MCHC (RBC) [Mass/Vol] 33.3 g/dL 32.0-35.0 [facility] MCV Auto (RBC) [Entitic vol] Ordered By: Mitch Talavera on 12-18-2021 MCV (RBC) [Entitic vol] 91.4 fL 80-100 [facility] Monocytes Auto (Bld) [#/Vol] Ordered By: Mitch Talavera on 12-18-2021 Monocytes (Bld) [#/Vol] 0.5 10*3/uL 0.0-0.8 [facility] Monocytes/100 WBC Auto (Bld) Ordered By: Mitch Talavera on 12-18-2021 Monocytes/100 WBC (Bld) 9.5 % . [facility] Neutrophils Auto (Bld) [#/Vo l]Ordered By: Mitch Talavera on 12-18-2021 Neutrophils (Bld) [#/Vol] 2.8 10*3/uL 1.8-7.7 [facility] Neutrophils/100 WBC Auto (Bl d)Ordered By: Mitch Talavera on 12-18-2021 Neutrophils/100 WBC (Bld) 48.3 % . [facility] No Panel InformationOrdered By: Mitch Talavera on 12-18-2021 Estimated GFR () > 60 mL/Min [facility] Comment on above: GFR estimated refere nce range: According to KDOQI guidelines, <60 ml/min/1.73m2 is sufficient to diagnose a patient with chronic kidney disease. Pharmacy Creatinine Clearance (Chem N/A [facility] Platelet mean volume Auto (B ld) [Entitic vol]Ordered By: Mitch Talavera on 12-18-2021 Platelet mean volume (Bld) [Entitic vol] 9.0 fL 6.3-10.7 [facility] Platelets Auto (Bld) [#/Vol] Ordered By: Mitch Talavera on 12-18-2021 Platelets (Bld) [#/Vol] 218 10*3/uL 150-450 [facility] Protein [Mass/volume] in Ser um or PlasmaOrdered By: Mitch Talavera on 12-18-2021 Protein [Mass/Vol] 6.0 g/dL 6.1-7.9 [facility] RBC Auto (Bld) [#/Vol]Ordere d By: Mitch Talavera on 12-18-2021 RBC (Bld) [#/Vol] 4.20 10*6/uL 3.60-5.00 [facility] Serum or plasma alanine crockett otransferase measurement without P-5'-P (enzymatic activiOrdered By: Mitch Talavera on 12-18-2021 ALT No additional P-5'-P [Catalytic activity/Vol] 16 U/L 10-60 [facility] Serum or plasma albumin/glob ulin mass ratioOrdered By: Mitch Talavera on 12-18-2021 Albumin/Globulin [Mass ratio] 1.6 {ratio} [facility] Serum or plasma alkaline skyla sphatase measurement (enzymatic activity/volume)Ordered By: Mitch Talavera on 12-18-2021 ALP [Catalytic activity/Vol] 63 U/L 32-92 [facility] Serum or plasma aspartate am inotransferase measurement (enzymatic activity/volume)Ordered By: Mitch Talavera on 12-18-2021 AST [Catalytic activity/Vol] 25 U/L 10-42 [facility] Serum or plasma calcium wilfredo urement (mass/volume)Ordered By: Mitch Talavera on 12-18-2021 Calcium [Mass/Vol] 9.3 mg/dL 8.2-10.2 [facility] Serum or plasma chloride oj surement (moles/volume)Ordered By: Mitch Talavera on 12-18-2021 Chloride [Moles/Vol] 99 mmol/L 95-114 [facility] Serum or plasma glucose wilfredo urement (mass/volume)Ordered By: Mitch Talavera on 12-18-2021 Glucose [Mass/Vol] 147 mg/dL 70-100 [facility] Comment on above: ADA recommended refe rence range Random Glucose Reference Range is dependent on time and content of last meal. Glucose of more than 200 mg/dL in a nonstressed, ambulatory subject supports the diagnosis of Diabetes Mellitus. ADA recommended refe rence rangeRandom Glucose Reference Range is dependent on time and content of last meal. Glucose of more than 200 mg/dL in a nonstressed, ambulatory subject supports the diagnosis of Diabetes Mellitus. Serum or plasma potassium me asurement (moles/volume)Ordered By: Mitch Talavera on 12-18-2021 Potassium [Moles/Vol] 3.5 mmol/L 3.5-5.1 [facility] Serum or plasma sodium measu rement (moles/volume)Ordered By: Mitch Talavera on 12-18-2021 Sodium [Moles/Vol] 136 mmol/L 136-146 [facility] Serum or plasma total biliru bin measurement (mass/volume)Ordered By: Mitch Talavera on 12-18-2021 Bilirubin [Mass/Vol] 0.5 mg/dL 0.3-1.2 [facility] Serum or plasma total carbon dioxide measurement (moles/volume)Ordered By: Mitch Talvaera on 12-18-2021 CO2 [Moles/Vol] 26.2 mmol/L 22.0-30.0 [facility] Serum or plasma urea nitroge n measurement (mass/volume)Ordered By: Mitch Talavera on 12-18-2021 Urea nitrogen [Mass/Vol] 11 mg/dL 02-07 [facility] XR wrist LT 2Von 09-04-2021 XR wrist LT 2V [facility] [employer] Other XR wrist LT 2V [facility] [employer] Other XR wrist LT 2V [address] [place] [address] [employer] Other XR wrist LT 2V [place] [id number] [facility] [employer] Other XR wrist LT 2V XRay Report [employer] Other XR wrist LT 2V Signed [employer] Other XR wrist LT 2V Patient: Irene Alvarado MR#: [id number] [place] [employer] Other XR wrist LT 2V 4 [employer] Other XR wrist LT 2V : 1940 Acct:[id number] [employer] Other XR wrist LT 2V Age/Sex: 80 / F ADM Date: 09/04/21 [employer] Other XR wrist LT 2V Loc: [facility]: [facility] [employer] Other XR wrist LT 2V Attending Dr: Mitch Talavera DO [employer] Other XR wrist LT 2V Ordering Provider: Mitch Talavera DO [employer] Other XR wrist LT 2V Date of Service: 09/04/21 [employer] Other XR wrist LT 2V XR/XR wrist LT 2V: PAIN [employer] Other XR wrist LT 2V Copies to: Mitch Talavera DO [employer] Other XR wrist LT 2V Left wrist 09/04/2021. [employer] Other XR wrist LT 2V CLINICAL DATA: Follow-up left wrist fracture. [employer] Other XR wrist LT 2V FINDINGS: 2 views of the left wrist were obtained and are compared with a prior study 08/15/2021. [employer] Other XR wrist LT 2V There is redemonstration of a healing fracture of the distal radius. There has been new bone [employer] Other XR wrist LT 2V formation at the fracture since the prior exam. Bony alignment appears stable. No other fracture is [employer] Other XR wrist LT 2V identified. No dislocation is seen. Advanced degenerative changes are again noted in the lateral [employer] Other XR wrist LT 2V wrist. [employer] Other XR wrist LT 2V XR/XR wrist LT 2V [employer] Other XR wrist LT 2V IMPRESSION: Healing distal left radius fracture. [employer] Other XR wrist LT 2V Impression dictated by: Renato Liriano Jr., M.D.09/04/2021 3:46 PM [employer] Other XR wrist LT 2V Dictation Location: [place] [address] [employer] Other XR wrist LT 2V Transcribed By: BOY 09/04/21 1546 [employer] Other XR wrist LT 2V Dictated By: Renato Liriano Jr, MD 09/04/21 1549 [employer] Other XR wrist LT 2V Signed By: [employer] Other XR wrist LT 2V 09/04/21 1546 [employer] Other XR wrist LT 2Von 08-15-2021 XR wrist LT 2V [facility] [employer] Other XR wrist LT 2V [facility] [employer] Other XR wrist LT 2V [address] [facility] [employer] Other XR [place] 2[place] [address] No rt [employer] Other XR wrist LT 2V XRay Report [employer] Other XR wrist LT 2V Signed [employer] Other XR wrist LT 2V Patient: Irene Alvarado MR#: [id number] [place] [employer] Other XR wrist LT 2V 4 [employer] Other XR wrist LT 2V : 1940 Acct:[id number] [place] [employer] Other XR wrist LT 2V Age/Sex: 80 / F ADM Date: 08/15/21 [employer] Other XR wrist LT 2V Loc: [facility]XD Room: Type : [facility] [employer] Other XR wrist LT 2V Attending Dr: Mitch Talavera DO [employer] Other XR wrist LT 2V Ordering Provider: Mitch Talavera DO [employer] Other XR wrist LT 2V Date of Service: 08/15/21 [employer] Other XR wrist LT 2V XR/XR wrist LT 2V: Other closed fracture of distal end of left radius, [employer] Other XR wrist LT 2V initial [employer] Other XR wrist LT 2V Copies to: Mitch Talavera DO [employer] Other XR wrist LT 2V Left wrist 2 views No rt [employer] Other XR wrist LT 2V Reason for exam: Follow-up distal left radius fracture. [employer] Other XR wrist LT 2V COMPARISON: Left wrist series 3A 22. [employer] Other XR wrist LT 2V FINDINGS: Healing impacted distal radius fracture unchanged in alignment when compared to the prior [employer] Other XR wrist LT 2V study. Distal ulna appears intact. No focal soft tissue abnormality. Severe degenerative changes [employer] Other XR wrist LT 2V involving the carpal bones, particularly involving the CMC joint of the thumb. [employer] Other XR wrist LT 2V XR/XR wrist LT 2V [employer] Other XR wrist LT 2V Impression: Healing impacted distal radius fracture. [employer] Other XR wrist LT 2V Impression dictated by: Rajesh Lynch Jr., DClaraOClara08/15/2021 2:31 PM [employer] Other XR wrist LT 2V Dictation Location: [place] [address] [employer] Other XR wrist LT 2V Transcribed By: BOY 08/15/21 143 [employer] Other XR wrist LT 2V Dictated By: Rajesh yLnch Jr DO 08/15/21 [facility] [employer] Other XR wrist LT 2V Signed By: [employer] Other XR wrist LT 2V 08/15/21 1431 [employer] Other XR HAND LT MIN 3Von 07-24-19 XR HAND LT MIN 3V EXAM: XR HAND LT MIN 3V, XR WRIST LT MIN 3 V HISTORY: Left hand and wrist pain COMPARISON: None. TECHNIQUE: 3 views of the hand and wrist respectively FINDINGS: Dorsal angulated impacted fracture of the distal radius with loss of volar tilt. Associated soft tissue edema. 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 Moderate degenerative changes of first carpometacarpal and triscaphe joints. Moderate degenerative changes of the second, third and fourth PIP and second, third and fifth DIP joints. IMPRESSION: Dorsal angulated impacted fracture of the distal radius with loss of tilt. Chondrocalcinosis pyrophosphate deposition disease. Electronically authenticated by: TIFFANY ADAM Date: 2021-07-23 20:10 Normal [facility] Vital Signs Date Time Vital Sign Value Performing Clinician Facility 05-19-2024 15:23-0500 Body height 154.9 cm Earnest Brown DPM Work Phone: [facility] 05-19-2024 15:23-0500 Body mass index (BMI) [Ratio] 25.51 kg/m2 Earnest Brown DPM Work Phone: [facility] 05-19-2024 15:23-0500 Body weight 61.24 kg Earnest Salinas DPM Work Phone: [facility] 05-19-2024 15:23-0500 Respiratory rate 16 /min Earnest Salinas DPM Work Phone: [facility] 03-03-2024 16:11-0400 Body height 154.9 cm Earnest Salinas DPM Work Phone: [facility] 03-03-2024 16:11-0400 Body mass index (BMI) [Ratio] 25.51 kg/m2 Earnest Brown DPM Work Phone: [facility] 03-03-2024 16:11-0400 Body weight 61.24 kg Earnest Brown DPM Work Phone: [facility] 03-03-2024 16:11-0400 Diastolic blood pressure 77 mm[Hg] Earnest Brown DPM Work Phone: [facility] 03-03-2024 16:11-0400 Heart rate 81 /min Earnest Salinas DPM Work Phone: [facility] 03-03-2024 16:11-0400 Systolic blood pressure 126 mm[Hg] Earnest Salinas DPM Work Phone: [facility] 01-20-2024 13:58-0400 Body height 154.9 cm Denny Chen MD Work Phone: [facility] 01-20-2024 13:58-0400 Body mass index (BMI) [Ratio] 25.51 kg/m2 Denny Chen MD Work Phone: [facility] 01-20-2024 13:58-0400 Body weight 61.24 kg Denny Chen MD Work Phone: [facility] 01-20-2024 13:58-0400 Diastolic blood pressure 68 mm[Hg] Denny Chen MD Work Phone: [facility] 01-20-2024 13:58-0400 Heart rate 69 /min Denny Chen MD Work Phone: [facility] 01-20-2024 13:58-0400 SaO2% (BldA) [Mass fraction] 97 % Denny Chen MD Work Phone: [facility] 01-20-2024 13:58-0400 Systolic blood pressure 124 mm[Hg] Denny Chen MD Work Phone: [facility] 08-10-2023 16:46-0400 Body height 154.94 cm II Denny Chen Work Phone: [facility] 08-10-2023 16:46-0400 Body mass index (BMI) [Ratio] 25.4 kg/m2 II Denny Chen Work Phone: [facility] 08-10-2023 16:46-0400 Body temperature 98.9 [degF] II Denny Chen Work Phone: [facility] 08-10-2023 16:46-0400 Body weight 61.23 kg II Denny Chen Work Phone: [facility] 08-10-2023 16:46-0400 Heart rate 83 /min II Denny Chen Work Phone: [facility] 08-10-2023 16:46-0400 Respiratory rate 16 /min II Denny Chen Work Phone: [facility] 08-10-2023 16:46-0400 SaO2% (BldA) [Mass fraction] 95 % II Denny Chen Work Phone: [facility] 07-02-2023 13:59-0500 Body height 154.9 cm Earnest Salinas DPM Work Phone: [facility] 07-02-2023 13:59-0500 Body mass index (BMI) [Ratio] 25.51 kg/m2 Earnest Salinas DPM Work Phone: [facility] 07-02-2023 13:59-0500 Body weight 61.24 kg Earnest Salinas DPM Work Phone: [facility] 07-02-2023 13:59-0500 Diastolic blood pressure 81 mm[Hg] Earnest Salinas DPM Work Phone: [facility] 07-02-2023 13:59-0500 Heart rate 82 /min Earnest Salinas DPM Work Phone: [facility] 07-02-2023 13:59-0500 Systolic blood pressure 133 mm[Hg] Earnest Salinas DPM Work Phone: [facility] 12-18-2021 14:34-0400 Body height 154.94 cm II Denny Chen Work Phone: [facility] 12-18-2021 14:34-0400 Body temperature 98.5 [degF] II Denny Chen Work Phone: [facility] 12-18-2021 14:34-0400 Body weight 62 kg II Denny Chen Work Phone: [facility] 12-18-2021 14:34-0400 Diastolic blood pressure 66 mm[Hg] II Denny Chen Work Phone: [facility] 12-18-2021 14:34-0400 Heart rate 74 /min II Denny Chen Work Phone: [facility] 12-18-2021 14:34-0400 Respiratory rate 16 /min II Denny Chen Work Phone: [facility] 12-18-2021 14:34-0400 SaO2% (BldA) [Mass fraction] 98 % II Denny Chen Work Phone: [facility] 12-18-2021 14:34-0400 Systolic blood pressure 125 mm[Hg] II Denny Chen Work Phone: [facility] 12-13-2021 11:45-0400 Body height 154.94 cm Mitch Sadaf Other [employer] Other 12-13-2021 11:45-0400 Body mass index (BMI) [Ratio] 26.07 kg/m2 Micth Sadaf Other [employer] Other 12-13-2021 11:45-0400 Body weight 62.6 kg Mitch Talavera Other [employer] Other 09-04-2021 15:15-0400 Body height Mitch Talavera Other [employer] Other 09-04-2021 15:15-0400 Body mass index (BMI) [Ratio] 26.07 kg/m2 Mitch Talavera Other [employer] Other 09-04-2021 15:15-0400 Body weight 62.6 kg Mitch Taalvera Other [employer] Other 08-15-2021 15:15-0400 Body height Mitch Talavera Other [employer] Other 08-15-2021 15:15-0400 Body mass index (BMI) [Ratio] 26.07 kg/m2 Mitch Talavera Other [employer] Other 08-15-2021 15:15-0400 Body weight 62.6 kg Mitch Talavera Other [employer] Other 07-25-2021 15:30-0500 Body height Mitch Talavera Other [employer] Other 07-25-2021 15:30-0500 Body mass index (BMI) [Ratio] 26.07 kg/m2 Mitch Talavera Other [employer] Other 07-25-2021 15:30-0500 Body weight 62.6 kg Mitch Talavera Other [employer] Other Encounters Encounter Date Encounter Type Care Provider Facility Start: 05-19-2024 End: 05-19-2024 Patient encounter procedure Earnest Salinas DPM Work Phone: [facility] Comment on above: Pain due to onychomy cosis of toenails of both feet (Primary Dx); Hav (hallux abducto valgus), right; Acquired deformity of right toe Start: 05-19-2024 End: 05-19-2024 Bamboo flowsheet Earnest Salinas DPM Work Phone: [facility] Start: 05-19-2024 End: 05-19-2024 Bamboo flowsheet Earnest Salinas DPM Work Phone: [facility] Start: 05-05-2024 End: 05-05-2024 ambulatory RUT NGUYEN Not Available Start: 05-05-2024 End: 05-05-2024 Postop follow up visit related to original px Rut Nguyen MD Work Phone: [facility] Comment on above: Encounter for remova l of sutures (Primary Dx) Start: 05-05-2024 End: 05-05-2024 Bamboo kenia Nguyen MD Work Phone: [facility] Start: 05-05-2024 End: 05-05-2024 Bamboo kenia Nguyen MD Work Phone: [facility] Start: 04-29-2024 End: 04-29-2024 Bamboo kenia Nguyen MD Work Phone: [facility] Start: 04-29-2024 End: 04-29-2024 Kirill Nguyen MD Work Phone: [facility] Start: 04-29-2024 End: 04-29-2024 Postop follow up visit related to original px Rut Nguyen MD Work Phone: [facility] Comment on above: Infection of superfi cial incisional surgical site after procedure, initial encounter (Primary Dx) Start: 04-29-2024 End: 04-29-2024 ambulatory RUT A PETITTI Not Available Start: 04-21-2024 End: 04-21-2024 ambulatory RUT A PETITTI Not Available Start: 04-21-2024 End: 04-21-2024 Patient encounter procedure Rut Nguyen MD Work Phone: [facility] Comment on above: 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) Start: 04-21-2024 End: 04-21-2024 Bamboo flowsteena Nguyen MD Work Phone: [facility] Start: 04-21-2024 End: 04-21-2024 Bamboo kenia Nguyen MD Work Phone: [facility] Start: 04-05-2024 End: 04-05-2024 ambulatory RUT A PETITTI Not Available Start: 04-05-2024 End: 04-05-2024 Office outpatient visit 15 minutes Rut Nguyen MD Work Phone: [facility] Comment on above: Capillary angioma (P rimary Dx); Lentigines; Neoplasm of unspecified behavior of bone, soft tissue, and skin; Actinic keratosis; Seborrheic keratosis Start: 04-05-2024 End: 04-06-2024 Telephone encounter Jodie Thursday SUBSTANCE ABUSE COUNSELOR Work Phone: [facility] Start: 03-03-2024 End: 03-03-2024 Patient encounter procedure Earnest Salinas DPM Work Phone: [facility] Comment on above: Hav (hallux abducto valgus), right (Primary Dx); Acquired deformity of right toe; Pain due to onychomycosis of toenails of both feet Start: 03-03-2024 End: 03-03-2024 ambulatory EARNEST SALINAS Not Available Start: 03-03-2024 End: 03-03-2024 Bamboo flowsheet Earnest Salinas DPM Work Phone: [facility] Start: 03-03-2024 End: 03-03-2024 Bamboo flowsheet Earnest Salinas DPM Work Phone: [facility] Start: 01-20-2024 End: 01-20-2024 Bamboo flowsheet Denny Chen MD Work Phone: [facility] Start: 01-20-2024 End: 01-20-2024 Bamboo flowsheet Denny Chen MD Work Phone: [facility] Start: 01-20-2024 End: 01-20-2024 Office outpatient visit 15 minutes Denny Chen MD Work Phone: [facility] Comment on above: Acquired hypothyroid ism (CMS/HCC) (Primary Dx); Osteopenia of multiple sites; Primary osteoarthritis of both knees Start: 01-20-2024 End: 01-20-2024 ambulatory DENNY CHEN Not Available Start: 12-31-2023 End: 12-31-2023 ambulatory EARNEST SALINAS Not Available Start: 12-24-2023 End: 12-24-2023 ambulatory EARNEST SALINAS Not Available Start: 10-15-2023 End: 10-15-2023 ambulatory EARNEST SALINAS Not Available Start: 09-17-2023 End: 09-17-2023 ambulatory Etienne Moses Facility:[facility] Start: 09-17-2023 End: 09-17-2023 ambulatory II Denny Chen Work Phone: [facility] Work Phone: Start: 09-17-2023 End: 09-17-2023 Patient encounter procedure II Denny Chen Work Phone: [facility] Work Phone: Start: 09-09-2023 End: 09-09-2023 ambulatory DENNY Christopher CHEN Not Available Start: 08-13-2023 End: 08-13-2023 ambulatory Denny Chen Facility:[facility] Start: 08-13-2023 End: 08-13-2023 ambulatory II Denny Chen Work Phone: [facility] Work Phone: Start: 08-13-2023 End: 08-13-2023 Patient encounter procedure II Denny Chen Work Phone: [facility] Work Phone: Start: 08-10-2023 End: 08-10-2023 ambulatory Denny Chen Facility:[facility] Start: 08-10-2023 End: 08-10-2023 ambulatory II Denny Chen Work Phone: [facility] Work Phone: Start: 08-10-2023 End: 08-10-2023 Patient encounter procedure II Denny Chen Work Phone: [facility] [place] Work Phone: Start: 07-29-2023 End: 07-29-2023 ambulatory CHRISTOPHER HOUSTON Not Available Start: 07-02-2023 Chart abstracting Earnest wheeler DPM Work Phone: [facility] Start: 07-02-2023 End: 07-02-2023 ambulatory EARNEST SALINAS Not Available Start: 07-02-2023 End: 07-02-2023 Office outpatient visit 15 minutes Earnest Salinas DPM Work Phone: [facility] Comment on above: Hav (hallux abducto valgus), right (Primary Dx); Onychomycosis; Toe pain, bilateral Start: 04-22-2022 End: 04-23-[address] DENNY CHEN Facility: Start: 01-10-2022 End: 01-10-2022 ambulatory Mitch Talavera Other [employer] Other Start: 01-10-2022 Postop follow up vis it related to original px Mitch Talavera [facility] [place] [facility] Start: 12-31-2021 End: 12-31-2021 ambulatory II Denny Chen Work Phone: [facility] Work Phone: Start: 12-31-2021 End: 12-31-2021 Departed Referred GORDY Chen Work Phone: [facility] [place] Start: 12-19-2021 End: 12-19-2021 ambulatory Mitch Talavera Other [employer] Other Start: 12-19-2021 Telephone encounter Mitch Talavera [facility] Start: 12-18-2021 End: 12-18-2021 Patient encounter procedure II Denny Chen Work Phone: [id number] Start: 12-13-2021 End: 12-13-2021 ambulatory Mitch Talavera Other [employer] Other Start: 12-13-2021 Office outpatient vi sit 15 minutes Mitch Talavera [facility] [place] [facility] Start: 09-04-2021 End: 09-04-2021 ambulatory Mitch Talavera Other [employer] Other Start: 09-04-2021 Postop follow up vis it related to original px Mitch Talavera [facility] [place] [facility] Start: 09-03-2021 End: 09-03-2021 ambulatory Mitch Talavera Other [employer] Other Start: 09-03-2021 Telephone encounter Mitch Talavera [facility] [place] [facility] Start: 08-15-2021 End: 08-15-2021 ambulatory Mitch Talavera Other [employer] Other Start: 08-15-2021 Postop follow up vis it related to original px Mitch Talavera [facility] [place] [facility] Start: 07-25-2021 End: 07-25-2021 ambulatory Mitch Talavera Other [employer] Other Start: 07-25-2021 [facility] visit new patient Mitch Talavera [facility] [place] [facility] Start: 07-23-2021 End: 07-23-[address] DENNY CHEN Facility: Procedures Date Procedure Procedure Detail Performing Clinician Start: 04-21-2024 SKIN REPAIR Rut mtz MD Work Phone: Start: 04-21-2024 SKIN EXCISION Rut laguerre MD Work Phone: Start: 04-05-2024 CRYOTHERAPY SKIN LESION Rut Nguyen MD Work Phone: Start: 04-05-2024 End: 04-05-2024 SKIN / NAIL BIOPSY Rut Nguyen MD Work Phone: Start: 09-17-2023 Plain X-ray of right forearm II Denny Chen Work Phone: Start: 08-13-2023 Plain X-ray of right wrist II Denny Chen Work Phone: Start: 08-10-2023 Plain X-ray of right forearm II Denny Chen Work Phone: Start: 08-10-2023 Plain X-ray of right shoulder II Denny Chen Work Phone: Plan of Treatment Date Care Activity Detail Author Start: 04-04-2025 End: 04-04-2025 Patient encounter procedure 04/04/2025 3:05 PM EST Office Visit [facility] [address] [place] [id number] Rut Nguyen MD [address] [place] [address] [facility] Start: 09-08-2024 Medicare Annual Wellness (AWV) Medicare Annual Wellness (AWV) [facility] Start: 07-28-2024 End: 07-28-2024 Patient encounter procedure 07/28/2024 3:10 PM EDT Procedure Visit [facility] [address] [place] [address] Earnest Salinas, DPM [address] [facility] [address] [place] [address] [facility] Start: 05-23-2024 End: 05-23-2024 Patient encounter procedure 05/23/2024 2:30 PM EST Office Visit [facility] [address] [place] [address] Denny Chen MD [address] [place] [address] [facility] Start: 05-19-2024 End: 05-19-2024 Patient encounter procedure 05/19/2024 3:10 PM EST Procedure Visit [facility] [address] [place] [address] Earnest Salinas, DPM [address] [facility] [address] [place] [address] [facility] Start: 05-12-2024 End: 05-12-2024 Patient encounter procedure 05/12/2024 3:30 PM EST Procedure Visit [facility] [address] [facility] [address] [place] [address] Earnest Salinas, DPM [address] [facility] [address] [place] [address] [facility] Start: 05-05-2024 End: 05-05-2024 Patient encounter procedure 05/05/2024 2:25 PM EST Office Visit [facility] [address] [place] [address] Rut Nguyen MD [address] [place] [address] [facility] Start: 04-29-2024 End: 04-29-2024 Patient encounter procedure 04/29/2024 12:20 PM EST Office Visit [facility] [address] [place] [phone] Rut Nguyen MD [address] [place] [address] Arrived [facility] Comment on above: Arrived Start: 04-05-2024 End: 04-05-2024 Patient encounter procedure 04/05/2024 2:30 PM EST Office Visit [facility] [address] [place] [address] Rut Nguyen MD [address] [place] [address] [facility] Start: 03-03-2024 End: 03-03-2024 Patient encounter procedure [facility] Comment on above: Hav (hallux abducto valgus), right (Prim micha Dx); Acquired deformity of right toe; Pain due to onychomycosis of toenails of both feet Start: 01-20-2024 End: 01-20-2024 Patient encounter procedure 01/20/2024 2:00 PM EDT Office Visit [facility] [address] [facility] [address] [place] [address] Denny Chen MD [address] [place] [address] Arrived [facility] Comment on above: Arrived Start: 01-17-2024 Influenza vaccination Influenza Vaccine (#1) [facility] Start: 09-10-2023 End: 09-10-2023 Patient encounter procedure 09/10/2023 3:10 PM EDT Procedure Visit [facility] [address] [facility] [address] [place] [address] Earnest Salinas, DPM [address] [address] [facility] Start: 08-10-2023 Patient referral [facility] Work Phone: Start: 08-08-2023 Medicare Annual Wellness (AWV) Medicare Annual Wellness (AWV) [facility] Start: 07-02-2023 End: 07-02-2023 Patient encounter procedure 07/02/2023 1:40 PM EST Procedure Visit [facility] [address] [facility] [address] [place] [address] Earnest Salinas DPM [address] [address] [facility] Start: 12-31-2021 Decompression of median nerve OR Carpal Tunnel Release Unilateral (Left) [facility] Aerobic culture Aerobic culture Microbiology Timed Infection of superficial incisional surgical site after procedure, initial encounter Release Upon Ordering for 1 Occurrences starting 04/29/2024 [facility] Work Phone: Comment on above: Release Upon Ordering for 1 Occurrences starting 04/29/2024 Dermatopathology exam Dermatopat hology exam Pathology and Cytology Timed Neoplasm of unspecified behavior of bone, soft tissue, and skin Release Upon Ordering for 1 Occurrences starting 04/05/2024 [facility] Work Phone: Comment on above: Release Upon Ordering for 1 Occurrences starting 04/05/2024 Dermatopathology exam Dermatopat hology exam Pathology and Cytology Timed Squamous cell carcinoma skin of abdomen Release Upon Ordering for 1 Occurrences starting 04/21/2024 [facility] Work Phone: Comment on above: Release Upon Ordering for 1 Occurrences starting 04/21/2024 Patient Education Radius Fracture [facility] Work Phone: Patient referral [facility] Work Phone: XR Radius and Ulna - right 2 Views [facility] XR Shoulder - right Views [facility] Immunizations Immunization Date Immunization Notes Care Provider [facility] 09-21-2023 RSV, recombinant, protein subunit RSVpreF, adjuvant reconstitu, 120mcg/0.5mL, PF (Arexvy) Denny Chen MD Work Phone: [facility] 03-01-2023 Influenza, Seasonal, Quadrivalent, Adjuvanted Denny Chen MD Work Phone: [facility] 03-01-2023 influenza virus vacc ine, unspecified formulation Denny Chen MD Work Phone: [facility] 09-19-2022 zoster vaccine recombinant Earnest Salinas DPM Work Phone: [facility] 04-03-2022 SARS-COV-2 (COVID-19 ) vaccine, mRNA, spike protein, LNP, bivalent, preservative free, 30 mcg/0.3 mL dose, brianne-sucrose formulation Earnest Salinas DPM Work Phone: [facility] Work Phone: 03-23-2022 Influenza, Seasonal, Quadrivalent, Adjuvanted Earnest Salinas DPM Work Phone: [facility] 02-28-2022 zoster vaccine recombinant Earnest Salinas DPM Work Phone: [facility] 09-24-2021 COVID-19 mRNA, Comir eleni (Pfizer) II Denny Chen Work Phone: [facility] 03-06-2021 COVID-19 mRNA, Comir eleni (Pfizer) II Denny Chen Work Phone: [facility] 02-17-2021 Influenza, High-dose Seasonal, Quadrivalent, Preservative Free Earnest Salinas DPM Work Phone: [facility] 07-16-2020 COVID-19 mRNA, Comir eleni (Pfizer) II Denny Chen Work Phone: [facility] 06-13-2020 COVID-19 mRNA, Comir eleni (Pfizer) II Denny Chen Work Phone: [facility] 03-31-2020 influenza, high dose seasonal, preservative-free Earnest Salinas DPM Work Phone: [facility] 10-25-2019 zoster vaccine recombinant Earnest Salinas DPM Work Phone: [facility] 05-31-2019 zoster vaccine recombinant Earnest Salinas DPM Work Phone: [facility] 02-15-2019 pneumococcal polysaccharide vaccine, 23 valent Earnest Salinas DPM Work Phone: [facility] 02-15-2018 influenza, high dose seasonal, preservative-free Earnest Salinas DPM Work Phone: [facility] 02-04-2017 influenza, high dose seasonal, preservative-free Earnest Salinas DPM Work Phone: [facility] 03-05-2015 zoster vaccine, live Luna Salinas DPM Work Phone: [facility] 02-27-2015 seasonal influenza, intradermal, preservative free Earnest Salinas DPM Work Phone: [facility] 01-04-2015 pneumococcal conjuga te vaccine, 13 valent Earnest Salinas DPM Work Phone: [facility] 02-15-2014 influenza, seasonal, injectable Earnest Salinas DPM Work Phone: [facility] 03-14-2013 seasonal influenza, intradermal, preservative free Earnest Brad DPM Work Phone: [facility] 02-14-2013 influenza virus vacc ine, whole virus Earnest Salinas DPM Work Phone: [facility] 07-15-2012 zoster vaccine, live Luna worley Brad DPM Work Phone: [facility] 03-03-2012 influenza virus vacc ine, whole virus Earnest Salinas DPM Work Phone: [facility] 12-10-2011 pneumococcal polysaccharide vaccine, 23 valent Earnest Brad DPM Work Phone: [facility] 02-12-2011 influenza virus vacc ine, whole virus Earnest Brad DPM Work Phone: [facility] 02-27-2010 influenza virus vacc ine, whole virus Earnest Brad DPM Work Phone: [facility] 02-21-2009 influenza virus vacc ine, whole virus Earnest Salinas DPM Work Phone: [facility] Payers Date Payer Category Payer Self-pay [id number] 2022 Medicare (Managed Care) [id number]. [id number] 2022 Unknown [id number] 2020 Unknown [id number] 1940 Unknown [id number] 2.16.84 [id number] 1942 Unknown [id number] 2.16.84 0.1.128613.3.579.2.593 1942 Unknown [id number] 2.16.84 0.1.260107.3.579.2.125 1942 Unknown [id number] 2.16.84 0.1.178589.3.579.2.1258 1942 Unknown [id number] 2.16.84 0.1.160848.3.579.2.1258 1942 Unknown [id number] 2.16.84 0.1.275750.3.579.2.1258 1942 Unknown [id number] 2.16.84 0.1.367268.3.579.2.1258 1942 Unknown [id number] 2.16.84 0.1.758506.3.579.2.1258 1942 Unknown [id number] 2.16.84 0.1.870449.3.579.2.1258 1942 Unknown [id number] 2.16.84 0.1.715400.3.579.2.1258 1942 Unknown [id number] 2.16.84 0.1.173148.3.579.2.1258 1942 Unknown [id number] 2.16.84 0.1.323909.3.579.2.1258 1942 Unknown [id number] 2.16.84 0.1.868712.3.579.2.1258 1942 Unknown [id number] 2.16.84 0.1.383879.3.579.2.1259 Medicare [id number] 2.16 .[id number] Unknown [id number] 2.16.84 0.1.119533.19 Unknown [id number] 2.16.8 40.1.906217.3.579.2.531 Unknown [id number] 2.16.8 40.1.501987.3.579.2.531 Unknown [id number] 2.16.8 [id number] Social History Date Type Detail Facility Unknown if ever smoked [employer] Other Start: 04-23-2023 End: 09-09-2023 Sex Assigned At [facility] Other Start: 12-18-2021 End: 10-30-2022 Tobacco smoking status NHIS Never smoked tobacco (finding) [facility] Start: 1940 Sex Assigned At Female [facility] Start: 10-30-2022 Tobacco use and exposure Smokeless tobacco non-user [facility] Start: 04-23-2023 End: 05-19-2024 Alcohol intake Ex-drinker (finding) [facility] Start: 04-23-2023 End: 09-09-2023 History of Social function [facility] Start: 02-10-2023 Alcohol Comment Caffeine intak e : coffee , tea [facility] Start: 1940 Sex Assigned At Not on file [facility] NEGATED: Highlighted rowStart: NINF History of tobacco use Passive smoker [facility] Clinical Notes 07-16-2017 to 05-19-2024 Earnest Salinas DPM - 05/19/2024 3:10 PM Jose F Nguyen MD - 05/05/2024 2:20 PM Jose F Nguyen MD - 04/29/2024 12:20 PM Jose F Nguyen MD - 04/21/2024 2:30 PM EST Note Date & Type Note Facility 05-19-2024 History of Presen t illness Narrative Patient: Irene Wood Alvarado : 1940 PCP: Denny Chen MD SUBJECTIVE This is a 83 y.o. female that presents today with a CC of elongated, thick nails. Pt states nails have been elongated and thick for many years and cause pain with ambulation in shoegear. Pt has tried previous treatment with minimal relief. Pt presents today for nail care and treatment. Has history of right bunion deformity with right 2nd hammertoe. Patient has complaints of issues with 2nd toe rubbing on the right hallux region and was to try Toe spacers with discussion in the past and states that she has some relief with toe spacers Allergies: Allergies Allergen Reactions Amoxicillin-Pot Clavulanate Diarrhea Cefdinir Diarrhea Erythromycin Base Other Reaction(s): Redness of Skin Erythromycin Rash Past Medical History: Past Medical History: Diagnosis Date Allergies Asthma ([facility]) Basal cell carcinoma 12/2018 right otto, saucerization excision Cholelithiasis 2010 Disorder of breast, unspecified External thrombosed hemorrhoids Ingrown nail Menopausal and postmenopausal disorder OM (onychomycosis) Osteoarthritis Osteoporosis , unspecified Osteoporosis, unspecified Osteoporosis, unspecified osteoporosis type, unspecified pathological fracture presence ([facility]) Squamous cell skin cancer Thyroid disease ([facility]) Medications: Current Outpatient Medications: Arexvy 120 MCG/0.5ML reconstituted suspension, , Disp: , Rfl: Ascorbic Acid (Vitamin C) 500 MG capsule, Take by mouth, Disp: , Rfl: Calcium Carbonate-Vit D-Min (Calcium 600+D Plus Minerals) 600-400 MG-UNIT chewable tablet, 1 (one) time each day at the same time., Disp: , Rfl: celecoxib (CeleBREX) 100 MG capsule, Take 1 capsule (100 mg) by mouth in the morning and 1 capsule (100 mg) before bedtime., Disp: 60 capsule, Rfl: 11 hydrocortisone (Anusol-HC) 2.5 % rectal cream, Insert into the rectum 2 (two) times a day., Disp: 28 g, Rfl: 2 levothyroxine (Synthroid, Levoxyl) 100 MCG tablet, Take 1 tablet (100 mcg) by mouth in the morning. Take on an empty stomach.., Disp: 100 tablet, Rfl: 3 Multiple Vitamin (MULTIVITAMINS PO), Take 1 tablet by mouth 1 (one) time each day., Disp: , Rfl: traMADol (Ultram) 50 MG tablet, Take 50 mg by mouth every 8 (eight) hours if needed for moderate pain, Disp: , Rfl: Social History: Social History Socioeconomic History Marital status: Spouse name: Not on file Number of children: Not on file Years of education: Not on file Highest education level: Not on file Occupational History Not on file Tobacco Use Smoking status: Never Passive exposure: Never Smokeless tobacco: Never Vaping Use Vaping status: Never Used Substance and Sexual Activity Alcohol use: Not Currently Comment: Caffeine intake : coffee , tea Drug use: Never Sexual activity: Defer Other Topics Concern Not on file Social History Narrative Merged History Encounter Exercise : daily walking Social Drivers of Health Financial Resource Strain: Not on file Food Insecurity: Not on file Transportation Needs: Not on file Physical Activity: Not on file Stress: Not on file Social Connections: Not on file Intimate Partner Violence: Not on file Housing Stability: Not on file ROS: General: denies fever, chills, fatigue, malaise OBJECTIVE LE EXAM: DERM: Elongated thick yellow crumbly nails digits 1 through 10. Positive hair growth b/l feet. Rubor to dorsal medial eminence of right 1st metatarsal and PIPJ rubor to right 2nd digit VASC: Positive palpable pedal pulses bilaterally NEURO: Gross sensation intact to bilateral feet ORTHO: Positive pain on palpation to nails 1 through 10. 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 Pain due to onychomycosis of toenails of both feet 2. Hav (hallux abducto valgus), right 3. Acquired deformity of right toe PLAN Discussed proper foot care with patient today. [place]ide nails in length and thickness digits 1 through 10 Patient to continue with toe spacers. Earnest Salinas DPM documented in this encounter [facility] 05-05-2024 History of Presen t illness Narrative Suture Removal Patient here for suture removal: No complaints of redness, drainage or swelling at site, compliant with wound care. Location: Left abdomen Procedure Performed: Excision Date of Procedure: 04/21/2024 Medications: Doxycycline 100 mg bid x 7 days (post op infection, staph 04/29/2024) All pertinent medical history, medications, and allergies were reviewed. General Exam: alert, oriented to person, place, and time, normal affect, well appearing Unaccompanied A focused exam completed based on patient reported problems, see below: 1. Encounter for removal of sutures Left Abdomen (side) - Upper Sutures are intact, Skin edges are well-approximated, Mild erythema along incision line, No drainage or edema noted Suture removal today, see procedure note: Suture Removal Procedure: Sutures were removed without difficulty. Tincture of Benzoin was applied around site in preparation of steri-strips. Steri-strips were applied Post-Procedure instructions: Instructed to discontinue wound care., Instructed to keep steri strips on for at least 5-7 days., Pathology results are pending. Next Visit: as scheduled documented in this encounter [facility] 04-29-2024 History of Presen t illness Narrative Images from the original note were not included. Wound Check Location: Left abdomen Procedure performed: Excision Diagnosis: Invasive SCC Date of procedure: 04/21/2024 Signs/Symptoms: red, tender, draining reddish yellow fluid, states it was bleeding yesterday but she was able to get it to stop All pertinent medical history, medications, and allergies were reviewed. General Exam: alert, oriented to person, place, and time, normal affect, well appearing Unaccompanied 1. Infection of superficial incisional surgical site after procedure, initial encounter Left Abdomen Post procedural wound with Surgical wound with erythema and purulent drainage , sutures are intact Wound check/care today. See note: Wound Care Location: left abdomen Wound Care: Cleansed the site with Vashe wound wash, petroleum ointment was applied and covered with a sterile bandage Wound Debridement: Area numbed with lidocaine, small incision made with 15 blade, no bleeding seen, small amount of purulent drainage expressed Instructions: Instructed to continue daily wound care , Instructed to take antibiotic as prescribed until notified of culture results doxycycline (Vibra-Tabs) 100 MG tablet - Left Abdomen Take 1 tablet (100 mg) by mouth in the morning and 1 tablet (100 mg) before bedtime. Do all this for 7 days. Specimen 1 - Aerobic culture Account Name: [place] [facility] NPI: Rut Nguyen [id number] Next Visit: as scheduled documented in this encounter [facility] 04-21-2024 History of Presen t illness Narrative Images from the original note were not included. Subjective Irene Alvarado is a 83 y.o. female who presents for the following: Excision Location: Left abdomen Date of biopsy: 04/05/2024 Diagnosis: Invasive squamous cell carcinoma Pre-Op Checklist: History of pacemaker/defibrillator: No History of joint replacement in the past 2 years: No History of HIV/Hepatitis B/Hepatitis C: No Latex allergy: No Is the patient currently on a blood thinner? No All pertinent medical history, medications, and allergies were reviewed. Surgical assistants: Fady Flores CMA and Jo-Ann Vasquez LPN Objective Well appearing patient in no apparent distress; mood and affect are within normal limits. 1. Squamous cell carcinoma skin of abdomen Left abdomen Erythematous macule at the biopsy site Skin excision Lesion length (cm): 0.7 Lesion width (cm): 0.7 Margin per side (cm): 0.4 Total excision diameter (cm): 1.5 Informed consent: discussed and consent obtained Informed consent comment: Risks and possible complications were discussed as noted on the consent form. The consent form was signed prior to the procedure. Timeout: patient name, date of , surgical site, and procedure verified Timeout comment: Patient and provider identified site. Site was marked and excision was drawn out. Photo was taken and shown to patient, patient verified this is the correct site. Procedure prep: Patient was prepped and draped in usual sterile fashion (The planned incision lines were drawn along relaxed skin tension lines, if possible, to minimize scarring and deformity of surrounding structures.) Prep type: Chlorhexidine Anesthesia: the lesion was anesthetized in a standard fashion Anesthesia comment: The local anesthetic was injected to create a field block at the site of the procedure. Anesthetic: 1% lidocaine w/ epinephrine 1-100,000 buffered w/ 8.4% NaHCO3 Instrument used: #15 blade Instrument used comment: Incisions were made as drawn, and the surrounding tissue was undermined until the skin edges could be approximated without undue tension. Any tissue redundancies were removed. Hemostasis achieved with: electrodesiccation Additional details: Amount of lidocaine used: 6.0 ml Estimated blood loss: <1.0 ml Skin repair Complexity: Intermediate Final length (cm): 3 Reason for type of repair: allow closure of the large defect Undermining: edges undermined Undermining comment: The surrounding tissue was undermined until the skin edges could be approximated without undue tension. Any tissue redundancies were removed. Subcutaneous layers (deep stitches): Suture size: 3-0 Suture type comment: Biosyn Stitches: Buried horizontal mattress (Closure was performed in a layered fashion with subcutaneous tissue closed first using tension-bearing absorbable sutures to the level of the superficial fascia.) Fine/surface layer approximation (top stitches): Suture size: 4-0 Suture type: Prolene (polypropylene) Stitches: simple running Stitches comment: Epicuticular skin sutures were then placed with minimal tension. Suture removal (days): 14 Outcome: patient tolerated procedure well with no complications Post-procedure details: sterile dressing applied and wound care instructions given Post-procedure details comment: It was emphasized to the patient to contact the office for any signs of infection, uncontrollable bleeding, or complications. Dressing type: bandage Specimen A - Dermatopathology exam Differential Diagnosis: SCC Check Margins: YES Previous accession number: [id number] Follow up: 14 days for s/r documented in this encounter [facility] 04-06-2024 Telephone encount er Note Rx was sent. [facility] 04-06-2024 Miscellaneous Notes Formattin g of this note might be different from the original. Rx was sent. documented in this encounter [facility] 04-05-2024 History of Presen t illness Narrative Images from the original note were not included. Skin Check Location: Patient requests a skin examination from the waist up Dermatologic history: history of Actinic Keratosis, history of Basal Cell Carcinoma Last visit: 1 year ago Established patient Lesions: Location: Left abdomen Duration: quite awhile Quality: denies pain, denies itch, denies bleeding Associated symptoms: enlarged, non-healing, rough Treatments: none All pertinent medical history, medications, and allergies were reviewed. General Exam: alert, oriented to person, place, and time, normal affect, well appearing Unaccompanied A complete skin exam was offered, pt declined. Areas not examined despite medical recommendation: From the waist down Scalp, Examined Head, Face Examined Neck Examined Chest Examined Back Examined Abdomen Examined Right arm Examined Left arm Examined Hands Examined Digits,nails: Examined Lymphatics: Not examined 1. Capillary angioma (3) Abdomen (Lower Torso, Anterior), Chest (Upper Torso, Anterior), Torso - Posterior (Back) Scattered lema-red papule(s). The patient was informed that angiomas are benign growths on the the skin. No treatment is necessary. 2. Lentigines Scattered berger macules in sun-exposed areas. The patient was informed that lentigines are benign pigmented lesions that occur on sun-exposed and sun-damaged skin. No treatment is necessary. Recommended regular use of broad spectrum sunscreen SPF 30 or higher 3. Neoplasm of unspecified behavior of bone, soft tissue, and skin (2) Left Abdomen Hyperkeratotic papule Lesion biopsy Type of biopsy: tangential Informed consent: discussed and consent obtained Informed consent comment: The risks and benefits of the biopsy were discussed. Risks include but are not limited to bleeding, infection, scarring, pain, and nerve damage. An opportunity to ask questions prior to the procedure was permitted and all questions were answered. Patient was prepped and draped in usual sterile fashion: area cleansed with alcohol. Anesthesia: the lesion was anesthetized in a standard fashion Anesthetic: 1% lidocaine w/ epinephrine 1-100,000 buffered w/ 8.4% NaHCO3 Instrument used: DermaBlade Hemostasis achieved with: electrodesiccation Outcome: patient tolerated procedure well Outcome comment: The specimen was placed in a prelabeled formalin container to be sent for pathology Post-procedure details: sterile dressing applied and wound care instructions given Post-procedure details comment: Emphasized need to contact clinic for any signs of infection, uncontrollable bleeding, or complications. Dressing type: bandage Additional details: Photo taken yes Amount of lidocaine used: 0.5 cc Specimen A - Dermatopathology exam Differential Diagnosis: verruca vs SCC Check Margins: No Size of lesion: 0.7 x 0.7 cm Right Forehead Firm skin colored papule Lesion biopsy Type of biopsy: tangential Informed consent: discussed and consent obtained Informed consent comment: The risks and benefits of the biopsy were discussed. Risks include but are not limited to bleeding, infection, scarring, pain, and nerve damage. An opportunity to ask questions prior to the procedure was permitted and all questions were answered. Patient was prepped and draped in usual sterile fashion: area cleansed with alcohol. Anesthesia: the lesion was anesthetized in a standard fashion Anesthetic: 1% lidocaine w/ epinephrine 1-100,000 buffered w/ 8.4% NaHCO3 Instrument used: DermaBlade Hemostasis achieved with: electrodesiccation Outcome: patient tolerated procedure well Outcome comment: The specimen was placed in a prelabeled formalin container to be sent for pathology Post-procedure details: sterile dressing applied and wound care instructions given Post-procedure details comment: Emphasized need to contact clinic for any signs of infection, uncontrollable bleeding, or complications. Dressing type: bandage Additional details: Photo taken yes Amount of lidocaine used: 0.5 cc Specimen B - Dermatopathology exam Differential Diagnosis: BCC vs scar Check Margins: No Size of lesion: 0.6 x 0.5 cm 4. Actinic keratosis Right Forearm - Posterior Erythematous scaly papules Patient was counseled regarding these sun-induced growths that can develop into squamous cell carcinoma if left untreated. Discussed treatment with cryotherapy. It was emphasized that any treated lesions that fail to resolve should be re-evaluated. Cryotherapy performed today; see procedure note Diagnosis: Actinic keratosis Indication: Precancerous Location: see skin exam Consent: Verbal consent was obtained and risks were discussed, including, but not limited to risks of scarring, darker or right of way worker pigmentary changes, recurrence, incomplete removal and infection. Method: Liquid nitrogen was used to treat the lesion(s) with two 5-10 second freeze-thaw cycles. Number of lesions treated: 1 Post-procedure instructions: Instructions were given orally and in writing. The office will be contacted if the lesion fails to resolve despite treatment, or if a side effect develops such as abnormal crusting, scabbing, redness or tenderness Cryotherapy, skin lesion - Right Forearm - Posterior 5. Seborrheic keratosis Stuck on verrucous, berger-brown papules and plaques. Patient was counseled regarding these benign growths. Removal is normally not necessary, but they may be removed if they are symptomatic or for cosmetic reasons. Next Visit: pending biopsy results documented in this encounter [facility] 03-03-2024 History of Presen t illness Narrative Patient: Irene Alvarado : 1940 PCP: Denny Chen MD SUBJECTIVE This is a 83 y.o. female that presents today with a CC of elongated, thick nails. Pt states nails have been elongated and thick for many years and cause pain with ambulation in shoegear. Pt has tried previous treatment with minimal relief. Pt presents today for nail care and treatment. Has history of right bunion deformity with right 2nd hammertoe. Patient has complaints of issues with 2nd toe rubbing on the right hallux region and was to try Toe spacers with discussion in the past and states that she has some relief with toe spacers Allergies: Allergies Allergen Reactions Amoxicillin-Pot Clavulanate Diarrhea Cefdinir Diarrhea Erythromycin Base Other Reaction(s): Redness of Skin Erythromycin Rash Past Medical History: Past Medical History: Diagnosis Date Allergies Asthma ([facility]) Basal cell carcinoma 12/2018 right otto, saucerization excision Cholelithiasis 2010 Disorder of breast, unspecified External thrombosed hemorrhoids Ingrown nail Menopausal and postmenopausal disorder OM (onychomycosis) Osteoarthritis Osteoporosis , unspecified Osteoporosis, unspecified Osteoporosis, unspecified osteoporosis type, unspecified pathological fracture presence ([facility]) Thyroid disease ([facility]) Medications: Current Outpatient Medications: Ascorbic Acid (Vitamin C) 500 MG capsule, Take by mouth, Disp: , Rfl: Calcium Carbonate-Vit D-Min (Calcium 600+D Plus Minerals) 600-400 MG-UNIT chewable tablet, 1 (one) time each day at the same time., Disp: , Rfl: hydrocortisone (Anusol-HC) 2.5 % rectal cream, Insert into the rectum 2 (two) times a day., Disp: 28 g, Rfl: 2 levothyroxine (Synthroid, Levoxyl) 100 MCG tablet, Take 1 tablet (100 mcg) by mouth in the morning. Take on an empty stomach.., Disp: 100 tablet, Rfl: 3 Multiple Vitamin (MULTIVITAMINS PO), Take 1 tablet by mouth 1 (one) time each day., Disp: , Rfl: traMADol (Ultram) 50 MG tablet, Take 50 mg by mouth every 8 (eight) hours if needed for moderate pain, Disp: , Rfl: Social History: Social History Socioeconomic History Marital status: Spouse name: Not on file Number of children: Not on file Years of education: Not on file Highest education level: Not on file Occupational History Not on file Tobacco Use Smoking status: Never Passive exposure: Never Smokeless tobacco: Never Vaping Use Vaping status: Never Used Substance and Sexual Activity Alcohol use: Not Currently Comment: Caffeine intake : coffee , tea Drug use: Never Sexual activity: Defer Other Topics Concern Not on file Social History Narrative Merged History Encounter Exercise : daily walking Social Drivers of Health Financial Resource Strain: Not on file Food Insecurity: Not on file Transportation Needs: Not on file Physical Activity: Not on file Stress: Not on file Social Connections: Not on file Intimate Partner Violence: Not on file Housing Stability: Not on file ROS: General: denies fever, chills, fatigue, malaise OBJECTIVE LE EXAM: DERM: Elongated thick yellow crumbly nails digits 1 through 10. Positive hair growth b/l feet. Rubor to dorsal medial eminence of right 1st metatarsal and PIPJ rubor to right 2nd digit VASC: Positive palpable pedal pulses bilaterally NEURO: Gross sensation intact to bilateral feet ORTHO: Positive pain on palpation to nails 1 through 10. 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 Hav (hallux abducto valgus), right 2. Acquired deformity of right toe 3. Pain due to onychomycosis of toenails of both feet PLAN Discussed proper foot care with patient today. Debride nails in length and thickness digits 1 through 10 Patient to continue with toe spacers. Earnest Salinas DPM documented in this encounter [facility] 01-20-2024 History of Presen t illness Narrative Images from the original note were not included. HPI Results Additional comments: Dexa scan Follow-up Additional comments: Pain med Med Refill Additional comments: Levothyroxine--dm negra Last edited by Carrie Alford LPN on 01/20/2024 2:00 PM. Subjective Patient ID: Irene Alvarado is a 83 y.o. female who presents for Results (Dexa scan), Follow-up (Pain med), and Med Refill (Levothyroxine--dm negra). Pt completed dexa scan Taking otc calcium-vit D Taking levothyroxine daily Denies any new complaints Uses Tramadol prn- no change in current pain level Med Refill Current Outpatient Medications on File Prior to Visit Medication Sig Dispense Refill Ascorbic Acid (Vitamin C) 500 MG capsule Take by mouth Calcium Carbonate-Vit D-Min (Calcium 600+D Plus Minerals) 600-400 MG-UNIT chewable tablet 1 (one) time each day at the same time. hydrocortisone (Anusol-HC) 2.5 % rectal cream Insert into the rectum 2 (two) times a day. 28 g 2 Multiple Vitamin (MULTIVITAMINS PO) Take 1 tablet by mouth 1 (one) time each day. traMADol (Ultram) 50 MG tablet Take 50 mg by mouth every 8 (eight) hours if needed for moderate pain [DISCONTINUED] levothyroxine (Synthroid, Levoxyl) 100 MCG tablet take 1 tablet by mouth every morning ON AN EMPTY STOMACH 100 tablet 3 [DISCONTINUED] cholecalciferol (Vitamin D-3) 50 MCG (1999) tablet Take 50 tablets by mouth 1 (one) time each day at the same time. [DISCONTINUED] Multiple Vitamins-Minerals (Vision Vitamins) tablet Take by mouth No current facility-administered medications on file prior to visit. I have reviewed and reconciled the history and medication list with the patient today. Allergies Allergen Reactions Amoxicillin-Pot Clavulanate Diarrhea Cefdinir Diarrhea Erythromycin Base Other Reaction(s): Redness of Skin Erythromycin Rash Social History Tobacco Use Smoking status: Never Passive exposure: Never Smokeless tobacco: Never Vaping Use Vaping status: Never Used Substance Use Topics Alcohol use: Not Currently Comment: Caffeine intake : coffee , tea Drug use: Never Family History Problem Relation Name Age of Onset Hypertension Sister Osteoarthritis Sister Hypertension Sibling Mental illness Sibling Melanoma Neg Hx Mental illness Other siblings Past Medical History: Diagnosis Date Allergies Asthma (CMS/HCC) Basal cell carcinoma 12/2018 right otto, saucerization excision Cholelithiasis 2009 Disorder of breast, unspecified External thrombosed hemorrhoids Ingrown nail Menopausal and postmenopausal disorder OM (onychomycosis) Osteoarthritis Osteoporosis , unspecified Osteoporosis, unspecified Osteoporosis, unspecified osteoporosis type, unspecified pathological fracture presence (CMS/HCC) Thyroid disease (CMS/HCC) Past Surgical History: Procedure Laterality Date CATARACT EXTRACTION Right 11/13/2020 CATARACT EXTRACTION Left 11/20/2020 CHOLECYSTECTOMY 2009 Disease; Cholelithiasis CHOLECYSTECTOMY 2009 Disease: Cholelithiasis COLONOSCOPY 2004 COLONOSCOPY W/ POLYPECTOMY 10/21/2017 [facility] OR CATARACT REMOVAL Right 11/13/2020 [facility] OR CATARACT REMOVAL Left 11/20/2020 HYSTERECTOMY 1979 Disease: endometriosis HYSTERECTOMY 1979 disease: endometriosis SKIN BIOPSY SKIN CANCER EXCISION Visit Vitals BP 124/68 Pulse 69 Ht 5' 1 Wt 135 lb SpO2 97% BMI 25.51 kg/m Smoking Status Never BSA 1.62 m Review of Systems Objective Physical Exam Constitutional: General: She is not in acute distress. Appearance: Normal appearance. She is well-developed. HENT: Head: Normocephalic and atraumatic. Eyes: General: No scleral icterus. Conjunctiva/sclera: Conjunctivae normal. Cardiovascular: Rate and Rhythm: Normal rate and regular rhythm. Heart sounds: Normal heart sounds. No murmur heard. Pulmonary: Effort: Pulmonary effort is normal. No respiratory distress. Breath sounds: Normal breath sounds. No wheezing, rhonchi or rales. Skin: General: Skin is warm and dry. Neurological: General: No focal deficit present. Mental Status: She is alert and oriented to person, place, and time. Psychiatric: Mood and Affect: Mood normal. Behavior: Behavior normal. Assessment/Plan Diagnoses and all orders for this visit: Acquired hypothyroidism (CMS/HCC) - levothyroxine (Synthroid, Levoxyl) 100 MCG tablet; Take 1 tablet (100 mcg) by mouth in the morning. Take on an empty stomach.. Osteopenia of multiple sites Primary osteoarthritis of both knees Follow up in about 4 months (around 05/21/2024) for Wellness, Perform Labwork. documented in this encounter [facility] 07-02-2023 History of Presen t illness Narrative Patient: Irene Alvarado : 1940 PCP: Denny Chen MD SUBJECTIVE This is a 82 y.o. female that presents today with a CC of elongated, thick nails. Pt states nails have been elongated and thick for many years and cause pain with ambulation in shoegear. Pt has tried previous treatment with minimal relief. Pt presents today for nail care and treatment. Patient also has complaints right bunion deformity as well as right 2nd toe pain. She states she is has not tried any toe spacers and had problems in shoe gear and states it has worsened over the past 6 months Allergies: Allergies Allergen Reactions Amoxicillin-Pot Clavulanate Diarrhea Cefdinir Diarrhea Erythromycin Rash Past Medical History: Past Medical History: Diagnosis Date Allergies Asthma ([facility]) Basal cell carcinoma 12/2018 right toto, saucerization excision Cholelithiasis 2010 Disorder of breast, unspecified External thrombosed hemorrhoids Ingrown nail Menopausal and postmenopausal disorder OM (onychomycosis) Osteoarthritis Osteoporosis , unspecified Osteoporosis, unspecified Osteoporosis, unspecified osteoporosis type, unspecified pathological fracture presence ([facility]) Thyroid disease ([facility]) Medications: Current Outpatient Medications: Calcium Carbonate-Vit D-Min (Calcium 600+D Plus Minerals) 600-400 MG-UNIT chewable tablet, 1 (one) time each day at the same time., Disp: , Rfl: celecoxib (CeleBREX) 100 MG capsule, Take 100 mg by mouth in the morning., Disp: , Rfl: cholecalciferol (Vitamin D-3) 50 MCG (2000 UT) tablet, Take 50 tablets by mouth 1 (one) time each day at the same time., Disp: , Rfl: hydrocortisone (Anusol-HC) 2.5 % rectal cream, Insert into the rectum 2 (two) times a day., Disp: 28 g, Rfl: 2 levothyroxine (Synthroid, Levoxyl) 100 MCG tablet, Take 100 mcg by mouth in the morning. Take on an empty stomach.., Disp: , Rfl: levothyroxine (Synthroid, Levoxyl) 100 MCG tablet, take 1 tablet by mouth every morning ON AN EMPTY STOMACH, Disp: 100 tablet, Rfl: 3 Multiple Vitamin (MULTIVITAMINS PO), Take 1 tablet by mouth 1 (one) time each day., Disp: , Rfl: triamcinolone (Kenalog) 0.1 % cream, Apply 1 application topically every 12 (twelve) hours., Disp: , Rfl: Social History: Social History Socioeconomic History Marital status: Spouse name: Not on file Number of children: Not on file Years of education: Not on file Highest education level: Not on file Occupational History Not on file Tobacco Use Smoking status: Never Passive exposure: Never Smokeless tobacco: Never Vaping Use Vaping Use: Every day Substance and Sexual Activity Alcohol use: Not Currently Comment: Caffeine intake : coffee , tea Drug use: Never Sexual activity: Defer Other Topics Concern Not on file Social History Narrative Merged History Encounter Exercise : daily walking Social Determinants of Health Financial Resource Strain: Not on file Food Insecurity: Not on file Transportation Needs: Not on file Physical Activity: Not on file Stress: Not on file Social Connections: Not on file Intimate Partner Violence: Not on file Housing Stability: Not on file ROS: General: denies fever, chills, fatigue, malaise OBJECTIVE LE EXAM: DERM: Elongated thick yellow crumbly nails digits 1 through 10. Positive hair growth b/l feet. Rubor to dorsal medial eminence of right 1st metatarsal and PIPJ rubor to right 2nd digit VASC: Positive palpable pedal pulses bilaterally NEURO: Gross sensation intact to bilateral feet ORTHO: Positive pain on palpation to nails 1 through 10. 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 Onychomycosis 2. Toe pain, bilateral 3. Hav (hallux abducto valgus), right PLAN Discussed proper foot care with patient today. Debride nails in length and thickness digits 1 through 10 Discussed conservative and surgical treatment options for patient today including postoperative time frame and surgical procedure in detail. Patient may continue with conservative treatments including [id number] anti-inflammatories and other treatments suggested today. Patient may want to be scheduled for surgical intervention in the near future. Discussed possible right Orantes bunionectomy and patient may consider in the future and also discussed toe spacers and arch her the try [id number] toe spacers 1st Earnest Salinas DPM documented in this encounter [facility] 01-10-2022 Evaluation note Encounter Date Diagnosis Assessment Notes Dec, Left carpal tunnel syndrome (ICD-10 - G56.02) Irene is now 1 week s/p left carpal tunnel release. She is doing well. Her sutures been removed today. I will allow her to increase activities as tolerated without restrictions . She can follow-up as needed from here. 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 incision appears clean and dry. There is some ecchymosis present at the site. Will remove sutures today. We discussed the importance of continuing motion and strength exercise. Patient instructed on ice for swelling and pain relief. Patient voiced understanding and states no further questions at this time. Dec, Other See orders for this visit as documented in the electronic medical record. [employer] Other 07-29-2022 Evaluation note* Encounter Date Diagnosis Assessment Notes Treatment Notes Treatment Clinical Notes Nov, Other closed fracture of distal end of left radius, initial encounter (ICD-10 - S52.592A) Irene returns with left distal radius fracture which is nondisplaced. At this juncture we have discussed the findings and diagnosis as well as personally reviewed appropriate imaging and performed interpretation of related testing and examination with the patient in office today. Her fracture is healed at this point I would continue activities as tolerated with increasing weightbearing as tolerated. She continues to have issues with a carpal tunnel syndrome that is failed conservative treatment. We will move forward with carpal tunnel release at this time. The patient has been involved in our cooperative treatment plan and agrees to move forward with treatment at this time. Patient is progressing well from this injury. We discussed the importance of continuing to work on range of motion and strength exercise. 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 We will see how this responds after splinting. We have sent a meloxicam as an anti-inflammatory and she can take Tylenol OTC along with medications given by [facility]. Nov, Left wrist pain (ICD-10 - M25.532) Nov, Left carpal tunnel syndrome (ICD-10 - G56.02) Findings and diagnosis of carpal tunnel syndrome have been discussed at length with the patient. We have discussed how it is the most common compressive neuropathy effects up to 10% of the population. Diagnostic evaluation including physical exam as well as electromyography and nerve conduction studies were discussed. Imaging and diagnostic studies have been reviewed with the patient. Nonoperative treatment including NSAIDs, night splints as well as activity modifications along with steroid injections have been discussed. We have discussed open surgical release of the transverse carpal ligament which is performed during carpal tunnel surgery. We have also discussed the outcomes involved in surgical release including the return of pinch strength in approximately 6 weeks, fishing rod marker strength recovery at about 12 weeks, and the possibility of ongoing symptoms at 1 year and 20% of severe cases. Patient verbalized understanding of our discussion and would like to move forward with carpal tunnel release at this time. At this juncture we have discussed the findings and diagnosis as well as reviewed appropriate imaging and performed interpretation of testing. Surgical intervention is recommended. Prior medical notes and history have been reviewed. Surgical versus non-operative management have been discussed in detail and non-operative management was given as an option. The risks of surgical intervention were given. Pre-operative optimization will be done prior to surgical procedure to limit tamra-operative risks. I have discussed the planned procedure, how and who performs the procedure, and the personnel involved. Cardiovascular, pulmonary, and other life threatening episodes can occur during surgery although there is a low risk of these happening. Surgical risks including bleeding, neurovascular injury, wound closure problems and infection were discussed. Tamra-operative risks including infection, bleeding, wound healing problems, and need for further surgery were discussed. It was discussed that there is a possibility of blood transfusion with any surgical procedure and the risks involved in receiving a blood transfusion. Possibility of, and need for, future bracing or DME use, physical or occupational therapy, mental therapy, rehabilitation, pain management and need for secondary procedures was discussed. I have warned against smoking and the use of tobacco products due to the risks associated with them, in particular, poor healing. I have advised against the chcf use of narcotic pain medication. I have advised to follow all post-operative instructions in order to obtain the best outcome. Informed consent has been verbally affirmed and signed as indicated. Patient advised of CTS diagnosis to the left hand. Instructed to wear a brace and utilize anti-inflammator y medications. Options of conservative and surgical treatment discussed in detail with patient. She was also given literature hand out with theraputic exercises. Patient opts to move forward with surgical treatment at this time. [employer] Other 04-20-2022 Evaluation note* Encounter Date Diagnosis Assessment Notes Treatment Notes Treatment Clinical Notes Aug, Other closed fracture of distal end of left radius, initial encounter (ICD-10 - S52.592A) Irene returns with left distal radius fracture which is nondisplaced. At this juncture we have discussed the findings and diagnosis as well as personally reviewed appropriate imaging and performed interpretation of related testing and examination with the patient in office today. At this time I would recommend continued splint and nonweightbearing to the left wrist. She may remove this for hygiene purposes only. We will plan for follow-up 4 weeks with repeat x-rays. The patient has been involved in our cooperative treatment plan and agrees to move forward with treatment at this time. Radiographs reviewed with patient today. Discussed with patient she can wear brace for heavy activities. Discussed with patient to continue to progress activity and motion as tolerated. 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 We will see how this responds after splinting. We have sent a meloxicam as an anti-inflammatory and she can take Tylenol OTC along with medications given by [facility]. Aug, Left wrist pain (ICD-10 - M25.532) [employer] Other 03-31-2022 Evaluation note* Encounter Date Diagnosis Assessment Notes Treatment Notes Treatment Clinical Notes Jul, Other closed fracture of distal end of left radius, initial encounter (ICD-10 - S52.592A) Irene returns with left distal radius fracture which is nondisplaced. At this juncture we have discussed the findings and diagnosis as well as personally reviewed appropriate imaging and performed interpretation of related testing and examination with the patient in office today. At this time I would recommend continued splint and nonweightbearing to the left wrist. She may remove this for hygiene purposes only. Nonweightbearing to the left wrist. We will plan for follow-up 4 weeks with repeat x-rays. The patient has been involved in our cooperative treatment plan and agrees to move forward with treatment at this time. Xrays were reviewed with patient in detail. Continue use of splint and Calcium and Vitamin D. 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 We will see how this responds after splinting. We have sent a meloxicam as an anti-inflammatory and she can take Tylenol OTC along with medications given by [facility]. Jul, Left wrist pain (ICD-10 - M25.532) [employer] Other 03-10-2022 Evaluation note* Encounter Date Diagnosis Assessment Notes Treatment Notes Treatment Clinical Notes Jul, Other closed fracture of distal end of left radius, initial encounter (ICD-10 - S52.592A) Irene presents with left distal radius fracture which is nondisplaced. At this juncture we have discussed the findings and diagnosis as well as personally reviewed appropriate imaging and performed interpretation of related testing and examination with the patient in office today. Prior medical notes from [facility] and history have been reviewed. At this time I would recommend splint and nonweightbearing to the left wrist. She may remove this for hygiene purposes only. Nonweightbearing to the left breast. We will plan for follow-up 4 weeks with repeat x-rays. The patient has been involved in our cooperative treatment plan and agrees to move forward with treatment at this time. Patient placed in cock up wrist splint. Instructed to avoid strenuous use. 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 We will see how this responds after splinting. We have sent a meloxicam as an anti-inflammatory and she can take Tylenol OTC along with medications given by [facility]. Jul, Left wrist pain (ICD-10 - M25.532) Jul, Other See orders for this visit as documented in the electronic medical record. [employer] Other 03-01-2018 History general Narrative - Reported* Type Description Date Medical History 07/2017 c-diff Surgical History hysterectomy Surgical History cholecystectomy [employer] Other Evaluation noteNo InformationNort [employer] Other Evaluation noteNo assessment information available [facility] Work Phone: Evaluation note* Diagnosis Hav (hallux abducto valgus), right- Primary Onychomycosis Dermatophytosis of nail Toe pain, bilateral documented in this encounter [facility]* Diagnosis Onset Date Resolution Status Distal radial fracture acute [facility] Work Phone: Evaluation note* Diagnosis Onset Date Resolution Status Distal radial fracture acute Impacted fracture acute [facility] Work Phone: Evaluation note* Diagnosis Onset Date Resolution Status Distal radial fracture acute Impacted fracture acute Distal radial fracture acute Osteoarthritis of carpometacarpal joint of right thumb acute [facility] Work Phone: Evaluation note* Diagnosis Onset Date Resolution Status Distal radial fracture acute Impacted fracture acute Distal radial fracture acute Osteoarthritis of carpometacarpal joint of right thumb acute Distal radial fracture acute Osteoarthritis of carpometacarpal joint of right thumb acute [facility] Work Phone: Evaluation note* Diagnosis Hav (hallux abducto valgus), right- Primary Acquired deformity of right toe Pain due to onychomycosis of toenails of both feet documented in this encounter [facility]* Diagnosis Capillary angioma- Primary Nevus, non-neoplastic Lentigines Neoplasm of unspecified behavior of bone, soft tissue, and skin Actinic keratosis Seborrheic keratosis documented in this encounter [facility]* Diagnosis Primary osteoarthritis of both knees- Primary Major depressive disorder, single episode, mild (HCC) ([facility]/HCC) Major depressive disorder, single episode, mild documented in this encounter [facility]* Diagnosis Squamous cell carcinoma skin of abdomen- Primary documented in this encounter [facility]* Diagnosis Infection of superficial incisional surgical site after procedure, initial encounter- Primary documented in this encounter [facility]* Diagnosis Acquired hypothyroidism ([facility])- Primary Unspecified hypothyroidism Osteopenia of multiple sites Primary osteoarthritis of both knees documented in this encounter [facility]* Diagnosis Encounter for removal of sutures- Primary documented in this encounter [facility]* Diagnosis Pain due to onychomycosis of toenails of both feet- Primary Hav (hallux abducto valgus), right Acquired deformity of right toe documented in this encounter [facility] Chief Complaint and Reason for Visit Chief Complaint Carpal Tunnel Chief Complaint Carpal Tunnel Carpal Tunnel Chief Complaint Right forearm injury s/p fall Reason for Visit Distal radial fractu re Chief Complaint Right forearm injury s/p fall Reason for Visit Distal radial fractu re Impacted fracture Chief Complaint Right forearm injury s/p fall S49.91XA UC [place] RT WRIST FX WX S52.509A - Unspecified fracture of the lower end o Reason for Visit Distal radial fractu re Impacted fracture Distal radial fracture Osteoarthritis of carpometacarpal joint of right thumb Chief Complaint Right forearm injury s/p fall S49.91XA UC [place] RT WRIST FX WX S52.509A - Unspecified fracture of the lower end o 5 WEEK RECHECK S52.509A - Unspecified fracture of the lower end o Reason for Visit Distal radial fractu re Impacted fracture Distal radial fracture Osteoarthritis of carpometacarpal joint of right thumb Distal radial fracture Osteoarthritis of carpometacarpal joint of right thumb Family History Relationship Condition Age at Onset Recorded Date/T palmer Not Specified Malignant neoplasm of colon Unknown Malignant neoplasm of breast Unknown father Tremor Unknown Dementia Unknown sister Dementia Unknown Advance Directives Advance Directive Response Recorded Date/ Time Advance Directives No October 19 8 4:53pm Summary Purpose Additional Source Comments REASON FOR VISIT (unrecogniz ed section and content) Reason Comments Toenail Care Non DM Nails Reason Comments Skin Check Reason Comments Wound Check Reason Comments Results Dexa scan Follow-up Pain med Med Refill Levothyroxine--dm cl yde Reason Comments Suture / Staple Removal Reason Comments Toenail Care Non dm nail care Care Teams (unrecognized sec tion and content) Team Status: Active Member Role Status Dates Denny Chen II MD Primary Care Provider Active Team Status: Inactive Member Role Status Dates Denny Chen II MD Primary Care Provider Active Start: August 10, 2023 End: August 10, 2023 Kennedi Hernandez APRN Attending Provider Active S tart: August 10, 2023 End: August 10, 2023 Team Status: Active Member Role Status Dates Denny Chen II MD Primary Care Provider Active Start: August 10, 2023 Kennedi Hernandez APRN Attending Provider Active S tart: August 10, 2023 Team Status: Inactive Member Role Status Dates Denny Chen II MD Primary Care Provider Active Mitch Talavera DO Attending Provider Active Lost And Found Clerk Relationship Specialty Start Date End Date Denny Chen MD [address] [place] [address] [address] [place] [address] PCP - General Internal Medicine 10/30/22 Denny Chen MD [address] [place] [address] PCP - [employer] 03/18/22 Denny Chen MD [address] [place] [address] Internal Medicine 10/30/22 Lost And Found Clerk Relationship Specialty Start Date End Date Denny Chen MD [address] [place] [address] PCP - General Internal Medicine 10/30/22 Denny Chen MD [address] [place] [address] PCP - [employer] 03/18/22 Denny Chen MD [address] [place] [address] Internal Medicine 10/30/22 Team Status: Inactive Member Role Status Dates Denny Chen II MD Primary Care Provider Active Start: August 13, 2023 End: August 13, 2023 Etienne Moses DO Attending Provider Active St art: August 13, 2023 End: August 13, 2023 Team Status: Active Member Role Status Dates Denny Chen II MD Primary Care Provider Active Start: August 13, 2023 Etienne Moses DO Attending Provider Active St art: August 13, 2023 Team Status: Inactive Member Role Status Dates Denny Chen II MD Primary Care Provider Active Start: September 17, 2023 End: September 17, 2023 Etienne Moses DO Attending Provider Active St art: September 17, 2023 End: September 17, 2023 Lost And Found Clerk Relationship Specialty Start Date End Date Denny Chen MD [address] [place] [address] PCP - General Internal Medicine 10/30/22 Denny Chen MD [address] [place] [address] PCP - Devoted 03/18/22 Denny Chen MD [address] [place] [address] Internal Medicine 10/30/22 Lost And Found Clerk Relationship Specialty Start Date End Date Denny Chen MD [address] [place] [address] PCP - General Internal Medicine 10/30/22 Denny Chen MD [address] [place] [address] PCP - [employer] 03/18/22 Denny Chen MD [address] [place] [address] Internal Medicine 10/30/22 Lost And Found Clerk Relationship Specialty Start Date End Date Denny Chen MD [address] [place] [address] PCP - General Internal Medicine 10/30/22 Denny Chen MD [address] [place] [address] PCP - [employer] 03/18/22 05/17/24 Denny Chen MD [address] [place] [address] Internal Medicine 10/30/22 Lost And Found Clerk Relationship Specialty Start Date End Date Denny Chen MD [address] [place] [address] PCP - General Internal Medicine 10/30/22 Denny Chen MD [address] [place] [address] PCP - [employer] 03/18/22 05/17/24 Denny Chen MD [address] [place] [address] Internal Medicine 10/30/22 Lost And Found Clerk Relationship Specialty Start Date End Date Denny Chen MD [address] [place] [address] PCP - General Internal Medicine 10/30/22 Denny Chen MD [address] [place] [address] PCP - [employer] 03/18/22 05/17/24 Denny Chen MD [address] [place] [address] Internal Medicine 10/30/22 Lost And Found Clerk Relationship Specialty Start Date End Date Denny Chen MD [address] [place] [address] PCP - General Internal Medicine 10/30/22 Denny Chen MD [address] [place] [address] PCP - [employer] 03/18/22 05/17/24 Denny Chen MD [address] [place] [address] Internal Medicine 10/30/22 Lost And Found Clerk Relationship Specialty Start Date End Date Denny Chen MD [address] [place] [address] PCP - General Internal Medicine 10/30/22 Denny Chen MD [address] [place] [address] PCP - [employer] 03/18/22 Denny Chen MD [address] [place] [address] Internal Medicine 10/30/22 Lost And Found Clerk Relationship Specialty Start Date End Date Denny Chen MD [address] [place] [address] PCP - General Internal Medicine 10/30/22 Denny Chen MD [address] [place] [address] PCP - Devoted 03/18/22 Denny Chen MD [address] [place] [address] Internal Medicine 10/30/22 Lost And Found Clerk Relationship Specialty Start Date End Date Denny Chen MD [address] [place] [address] PCP - General Internal Medicine 10/30/22 Denny Chen MD [address] [place] [address] PCP - [employer] 03/18/22 05/17/24 Denny Chen MD [address] [place] [address] Internal Medicine 10/30/22 Lost And Found Clerk Relationship Specialty Start Date End Date Denny Chen MD [address] [place] [address] PCP - General Internal Medicine 10/30/22 Denny Chen MD [address] [place] [address] Internal Medicine 10/30/22 Lost And Found Clerk Relationship Specialty Start Date End Date Denny Chen MD [address] [facility] [address] [place] [address] PCP - General Internal Medicine 10/30/22 Denny Chen MD [address] [facility] [address] [place] [address] Internal Medicine 10/30/22 Goals (unrecognized section and content) Goals may be documented in a n alternate section INFORMATION SOURCE (unrecogn ized section and content) DATE CREATED AUTHOR 04/26/2022 [facility] DATE CREATED AUTHOR AUTHOR'S ORGANIZ ATION 09/24/2023 [facility] DATE CREATED AUTHOR AUTHOR'S ORGANIZ ATION 05/03/2024 [facility] DATE CREATED AUTHOR AUTHOR'S ORGANIZ ATION 05/09/2024 [facility] FOR RECORDS PERTAINING TO PATIENTS WHO ARE OR HAVE BEEN ENROLLED IN A CHEMICAL DEPENDENCY/SUBSTANCEABUSE PROGRAM, SOME INFORMATION MAY BE OMITTED. This clinical summary was aggregated from multiple sources. Caution should be exercised in using it in the provision of clinical care. This summary normalizes information from multiple sources, and as a consequence, information in this document may materially change the coding, format and clinical context of patient data. In addition, data may be omitted in some cases. CLINICAL DECISIONS SHOULD BE BASED ON THE PRIMARY CLINICAL RECORDS. [employer] [facility]. provides no warranty or guarantee of the accuracy or completeness of information in this document.
== END 2024-05-20 14:01 | disposition home or self-care (01) ==
LOC: MAMMO 14:00
PROVIDERS: PCP Internal Medicine; Visit Provider Internal Medicine
DX: Z12.31 Encounter for screening mammogram for malignant neoplasm of breast (principal); Z80.3 Family history of malignant neoplasm of breast; Z80.0 Family history of malignant neoplasm of digestive organs; Z80.52 Family history of malignant neoplasm of bladder; Z80.8 Family history of malignant neoplasm of other organs or systems
CPT/HCPCS: 77063; 77067